=== PATIENT | female | born 1950 | race Caucasian/White ===

== ENCOUNTER 2018-01-30 17:49 | Inpatient (IN) | payer MEDICARE, MEDICAID ==
[~2018-01-30] VITALS: Ht 170.2 cm; Wt 79.8 kg
[2018-01-31 00:40] VITALS: BP 134/87
[2018-01-31] MEDS ORDERED: LORATADINE10 M2 PO (01:50)
[2018-01-31] MEDS ORDERED: LEVOTHYROXINE125 MCG ORAL (01:50)
[2018-01-31] MEDS ORDERED: CYCLOBENZAPRINE10 MG ORAL (01:50)
[2018-01-31] MEDS ORDERED: NEURONTIN600 MG ORAL (01:50)
[2018-01-31] MEDS ORDERED: QUETIAPINE FUMA50 MG ORAL (01:50)
[2018-01-31] MEDS ORDERED: GERI-TUSSI100 MG/5 M PO (01:50)
[2018-01-31] MEDS ORDERED: CYMBALTA60 MG ORAL (01:50)
[2018-01-31] MEDS ORDERED: TRAMADOL HCL50 MG ORAL (01:50)
[2018-01-31] MEDS ORDERED: LAMICTAL100 MG ORAL (01:50)
[2018-01-31] MEDS ORDERED: ACETAMINOPHEN325 M1 ORAL (01:50)
[2018-01-31] MEDS ORDERED: FLONASE1 SPRAYS NASAL (01:50)
[2018-01-31] MEDS ORDERED: MILK OF MA2400 MG/10 ORAL (01:50)
[2018-01-31] MEDS ORDERED: NORCO 5-325 TA1 EACH ORAL (01:50)
[2018-01-31] MEDS ORDERED: B-121000 MCG PO (01:50)
[2018-01-31] MEDS ORDERED: FAMOTIDINE20 MG ORAL (01:50)
[2018-01-31] MEDS ORDERED: TRAZODONE HCL300 MG ORAL (01:50)
[2018-01-31] MEDS ORDERED: Milk of Magnesia 30ml Ud ORAL PRN (02:45)
[2018-01-31] MEDS: cefTRIAXone 1 GM in D5W 55 ML IVPB SCH (03:45)
[2018-01-31 04:00] VITALS: BP 129/71
[2018-01-31] MEDS: Levothyroxine 125mcg tab ORAL SCH (05:58)
[2018-01-31 07:15] LABS: ALBUMIN 3.2 G/DL (3.4-5.0); ALBUMIN/GLOBULIN RATIO 0.9 (1.0-2.7); ALKALINE PHOSPHATASE 122 U/L (46-116); ANION GAP 6 mmol/L (5-15); ASPARTATE AMINO TRANSFERASE 17 U/L (15-37); BILIRUBIN,TOTAL 0.4 MG/DL (0.2-1.0); BLOOD UREA NITROGEN 15 mg/dL (7-18); CALCIUM 8.9 MG/DL (8.5-10.1); CARBON DIOXIDE 28 MMOL/L (21-32); CHLORIDE 104 MMOL/L (98-107); CREATININE 1.2 MG/DL (0.55-1.30); POTASSIUM 4.3 MMOL/L (3.5-5.1); SODIUM 138 MMOL/L (136-145)
[2018-01-31 07:32] LABS: ALANINE AMINOTRANSFERASE 18 U/L (12-78)
[2018-01-31 08:00] VITALS: BP 139/74
[2018-01-31 08:15] LABS: BASOPHILS % (AUTO) 0.5 % (0.0-2.0); EOSINOPHILS % (AUTO) 3.9 % (0.0-3.0); HEMOGLOBIN 12.3 G/DL (12.0-16.0); LYMPHOCYTES % (AUTO) 18.7 % (20.0-45.0); MEAN CORPUSCULAR VOLUME 96 FL (80-99); MONOCYTES % (AUTO) 4.4 % (1.0-10.0); NEUTROPHILS % (AUTO) 72.5 % (45.0-75.0); PLATELET COUNT 254 K/UL (150-450); RED BLOOD COUNT 3.85 M/UL (4.20-5.40); WHITE BLOOD COUNT 16.2 K/UL (4.8-10.8)
--- NOTE | 2018-01-31 08:49 | Diagnostic Imaging Report ---
EXAM: XR Chest, 1 View CLINICAL HISTORY: COPD TECHNIQUE: Frontal view of the chest. COMPARISON: No relevant prior studies available. FINDINGS: Lungs: Low lung volumes with elevated right hemidiaphragm. Suspected right lower lobe infiltrate. Pleural space: Unremarkable. No pneumothorax. Heart: Unremarkable. No cardiomegaly. Mediastinum: Unremarkable. Bones/joints: Unremarkable. IMPRESSION: Low lung volumes with elevated right hemidiaphragm and right lower lobe infiltrate. Recommend short-term followup.
[2018-01-31] MEDS ORDERED: Flonase Nasal Inhaler 16gm NASAL SCH (09:00)
[2018-01-31] MEDS: DULoxetine 30mg cap ORAL SCH ×2 (10:02→17:53)
[2018-01-31] MEDS: Solu-MEDROL 40mg Inj IVP SCH ×2 (10:04→22:45)
[2018-01-31] MEDS: Cyclobenzaprine 10mg Tab ORAL SCH ×2 (10:04→17:53)
[2018-01-31] MEDS: guaiFENesin 100mg/5ml Liq ud ORAL PRN (10:12)
[2018-01-31] MEDS: Flonase Nasal Inhaler 16gm NASAL SCH (10:12)
[2018-01-31 12:00] VITALS: BP 126/67
[2018-01-31] MEDS ORDERED: NS 275ml ONE (15:48)
[2018-01-31] MEDS ORDERED: Tubing IV Secondary IV ONE (15:48)
[2018-01-31 16:00] VITALS: BP 120/67
--- NOTE | 2018-01-31 16:02 | Consultation ---
Consult Note Assessment/Plan #[id number] COPDexacerbation AMS pna depression/Gregoria Osorio DO Jan 31, 2018 16:02
[2018-01-31] MEDS ORDERED: Albuterol/Ipratropium 3ml neb ONE (16:43)
[2018-01-31] MEDS ORDERED: Albuterol/Ipratropium 3ml neb HHN PRN ×2 (16:45)
[2018-01-31] MEDS: Albuterol/Ipratropium 3ml neb HHN SCH ×2 (19:51→23:39)
[2018-01-31 20:09] VITALS: BP 127/70
[2018-01-31] MEDS: TraZODone 100mg tab ORAL SCH (22:46)
[2018-01-31] MEDS: Norco 5mg/325mg tab ORAL PRN (22:59)
--- NOTE | 2018-01-31 23:01 | Consultation ---
DATE OF CONSULTATION: 01/31/2018 PULMONARY CONSULTATION CONSULTING PHYSICIAN: Gregoria Islas D.O. REASON FOR CONSULTATION: Shortness of breath. HISTORY OF PRESENT ILLNESS: This is a 67-year-old female, who is directly admitted to our facility with COPD exacerbation, possible pneumonia. Upon my entering her room, she was lethargic, aroused to noxious stimuli, fell asleep quickly. She was eating earlier and awake per the nursing staff. No reports of chest pain, nausea, vomiting, or diarrhea. PAST MEDICAL HISTORY: Includes pneumonia, gait instability, CHF, COPD, GERD, hypothyroidism, bipolar disorder, chronic low back pain. FAMILY HISTORY: Unavailable. REVIEW OF SYSTEMS: Unavailable. Pre-hospital and current hospital medications were reviewed, reconciled, and documented in the electronic medical record by dose, frequency, and route. ALLERGIES: She has no known drug allergies. CODE STATUS: She is DNR. PHYSICAL EXAMINATION: GENERAL: At the time of my exam, she is lethargic in no acute respiratory distress, on supplemental oxygen. HEENT: Oropharynx is moist. Nasal mucosa moist. LUNGS: Decreased at the bases. No wheezes. HEART: Regular rhythm without a murmur. ABDOMEN: Soft, nontender. Positive bowel sounds. EXTREMITIES: No edema. NEUROLOGIC: She does move her extremities spontaneously. LABORATORY VALUES: White count 16.2, hemoglobin 12.3, and platelets are 254,000. Sodium 138, potassium 4.3, chloride 104, bicarbonate 26, BUN 15, creatinine 1.2, and glucose is 106. Chest x-ray was obtained today, low lung volumes with elevated right hemidiaphragm and possible right lower lobe infiltrate. ASSESSMENT AND PLAN: Pneumonia, COPD with exacerbation, depression, bipolar disorder, gait dysfunction, gastroesophageal reflux disease, and hypertension. The patient was placed on IV antibiotics which should be continued. Check sputum cultures. Steroids have been initiated and would continue. We would check a baseline ABG. Follow up O2 to maintain saturations greater than 90%. DVT prophylaxis. Nebulizers will be ordered as DuoNebs q.4 hours [id number]. Home medications to resume. Follow up her laboratories and we will continue to follow the patient for the remainder of her hospital stay. Gregoria Islas D.O. DR: Jose JOB#: [id number] CC:
[2018-02-01] MEDS: Albuterol/Ipratropium 3ml neb HHN SCH ×6 (03:40→23:16)
[2018-02-01] MEDS: cefTRIAXone 1 GM in D5W 55 ML IVPB SCH (04:27)
[2018-02-01] MEDS: Levothyroxine 125mcg tab ORAL SCH (07:05)
[2018-02-01 08:00] VITALS: BP 127/73
[2018-02-01] MEDS: Solu-MEDROL 40mg Inj IVP SCH ×2 (09:07→20:37)
[2018-02-01] MEDS: Cyclobenzaprine 10mg Tab ORAL SCH ×2 (09:07→17:19)
[2018-02-01] MEDS: Flonase Nasal Inhaler 16gm NASAL SCH (09:07)
[2018-02-01] MEDS: DULoxetine 30mg cap ORAL SCH ×2 (09:08→17:19)
[2018-02-01 12:00] VITALS: BP 115/43
--- NOTE | 2018-02-01 12:28 | Consultation ---
History of Present Illness General Date patient seen: Feb 01, 2018 Present Illness Allergies: Uncoded Allergies: lactose intolerant (Adverse Reaction, Intermediate, 01/31/18) Medication History Scheduled Cyanocobalamin (Vitamin B-12) (B-12), 1,000 MCG PO DAILY, (Reported) Cyclobenzaprine Hcl* (Flexeril*), 10 MG ORAL BID, (Reported) Duloxetine Hcl* (Cymbalta*), 60 MG ORAL BID, (Reported) Famotidine (Famotidine), 20 MG ORAL DAILY, (Reported) Fluticasone Propionate (Fluticasone Propionate), 1 SPRAY NASAL DAILY, (Reported) Gabapentin* (Neurontin*), 600 MG ORAL BID, (Reported) Lamotrigine* (Lamictal*), 100 MG ORAL BID, (Reported) Levothyroxine Sodium* (Levothyroxine Sodium*), 125 MCG ORAL DAILY, (Reported) Quetiapine Fumarate* (Quetiapine Fumarate*), 25 MG ORAL BID, (Reported) Trazodone Hcl (Trazodone Hcl), 100 MG ORAL BEDTIME, (Reported) Scheduled PRN Acetaminophen* (Acetaminophen 325MG Tablet*), 650 MG ORAL Q6H PRN for Mild Pain/ Temp > 100.5, (Reported) Guaifenesin (Yelitza-Tussin), 100 MG PO EVERY 6 HOURS PRN for For Cough, (Reported) Hydrocodone Bit/Acetaminophen 5-325* ([place] 5-325*), 1 TAB ORAL Q12HR PRN for Moderate Pain (Pain Scale 4-6), (Reported) Loratadine (Loratadine), 10 MG PO DAILY PRN for Itching/Pruritis, (Reported) Magnesium Hydroxide* (Milk Of Magnesia*), 30 ML ORAL DAILY PRN for Constipation, (Reported) Tramadol Hcl* (Ultram*), 50 MG ORAL Q4HR PRN for Severe Pain (Pain Scale 7-10), (Reported) Patient History Healthcare decision maker Resuscitation status Do Not Resuscitate Advanced Directive on File No Physical Exam Last 24 Hour Vital Signs Date Time Temp Pulse Resp B/P (MAP) Pulse Ox O2 Delivery O2 Flow Rate FiO2 02/01/18 09:07 97.8 02/01/18 08:25 84 20 99 Room Air 21 02/01/18 08:18 83 20 85 Room Air 21 02/01/18 08:00 97.8 77 18 127/73 (91) 96 97.8 02/01/18 04:00 02/01/18 03:40 Room Air 02/01/18 03:40 Room Air 01/31/18 23:48 79 20 99 Room Air 01/31/18 23:38 86 20 96 Room Air 01/31/18 21:00 Room Air 01/31/18 20:09 96.5 89 20 127/70 (89) 100 96.5 01/31/18 19:58 83 20 99 Room Air 01/31/18 19:48 84 20 95 Room Air 01/31/18 18:52 98.2 01/31/18 17:53 98.2 01/31/18 17:10 66 20 97 Room Air 01/31/18 16:54 63 20 93 Room Air 01/31/18 16:53 63 20 Room Air 01/31/18 16:00 98.2 85 20 120/67 (84) 98 98.2 Intake and Output 01/31/18 02/01/18 19:00 07:00 Intake Total 680 ml 200 ml Output Total 850 ml Balance 680 ml -650 ml Intake Oral 680 ml Free Water 200 ml Output Urine Total 850 ml # Voids 4 Laboratory Tests Test 01/31/18 16:50 Arterial Blood pH 7.420 (7.350-7.450) Arterial Blood Partial Pressure CO2 38.3 mmHg (35.0-45.0) Arterial Blood Partial Pressure O2 68.2 mmHg (75.0-100.0) L Arterial Blood HCO3 24.6 mmol/L (22.0-26.0) Arterial Blood Oxygen Saturation 93.9 % (92.0-98.0) Arterial Blood Base Excess 0.4 Juan Test Positive Height (Feet): 5 Height (Inches): 7.00 Weight (Pounds): 175 Medications Current Medications Medications (Trade) Dose Ordered Sig/Rohan Route PRN Reason Start Time Stop Time Status Last Admin Dose Admin Acetaminophen (Tylenol) 650 mg Q6H PRN ORAL Mild Pain/Temp > 100.5 01/31/18 02:45 03/02/18 02:44 Acetaminophen/ Hydrocodone Bitart ([place] 5/325) 1 tab Q12H PRN ORAL Moderate Pain (Pain Scale 4-6) 01/31/18 02:45 02/07/18 02:44 01/31/18 22:59 Albuterol/ Ipratropium (Albuterol/ Ipratropium) 3 ml Q4H PRN HHN Shortness of Breath 01/31/18 16:45 02/05/18 16:44 01/31/18 16:54 Albuterol/ Ipratropium (Albuterol/ Ipratropium) 3 ml Q4HRT HHN 01/31/18 19:00 02/05/18 18:59 02/01/18 08:18 Ceftriaxone Sodium 1 gm/ Dextrose 55 ml @ 110 mls/hr Q24H IVPB 01/31/18 03:00 02/07/18 02:59 02/01/18 04:27 Cyclobenzaprine HCl (Flexeril) 10 mg BID ORAL 01/31/18 09:00 03/02/18 08:59 02/01/18 09:07 Duloxetine HCl (Cymbalta) 60 mg BID ORAL 01/31/18 09:00 03/02/18 08:59 02/01/18 09:08 Famotidine (Pepcid) 20 mg DAILY ORAL 01/31/18 09:00 03/02/18 08:59 02/01/18 09:08 Fluticasone Propionate (Flonase) 1 spray DAILY NASAL 01/31/18 09:00 03/02/18 08:59 02/01/18 09:07 Guaifenesin (Robitussin) 100 mg Q6H PRN ORAL For Cough 01/31/18 02:45 03/02/18 02:44 01/31/18 10:12 Lamotrigine (LaMICtal) 100 mg BID ORAL 01/31/18 09:00 03/02/18 08:59 02/01/18 09:07 Levothyroxine Sodium (Synthroid) 125 mcg DAILY@0630 ORAL 01/31/18 06:30 03/02/18 06:29 02/01/18 07:05 Magnesium Hydroxide (Mom) 30 ml DAILY PRN ORAL Constipation 01/31/18 02:45 03/02/18 02:44 Methylprednisolone Sodium Succinate (Solu-MEDROL) 40 mg EVERY 12 HOURS IVP 01/31/18 09:00 03/02/18 08:59 7/15/18 09:07 Pregabalin (Lyrica) 75 mg THREE TIMES A DAY ORAL 02/01/18 13:00 03/03/18 12:59 UNV Quetiapine Fumarate (SEROquel) 25 mg BID ORAL 01/31/18 09:00 03/02/18 08:59 02/01/18 09:07 Tramadol HCl (Ultram) 50 mg Q4H PRN ORAL Severe Pain (Pain Scale 7-10) 01/31/18 02:45 02/07/18 02:44 Trazodone HCl (Desyrel) 100 mg BEDTIME ORAL 01/31/18 21:00 03/02/18 20:59 01/31/18 22:46 Assessment/Plan Assessment/Plan (1) Cervical sprain (2) Cervical Radiculopathy (3) Cervical spondylosis (4) Postherpetic neuralgia seen dictated Larry Celis Feb 01, 2018 12:28
--- NOTE | 2018-02-01 12:55 | Infectious Diseases Prog Note ---
Assessment/Plan Assessment/Plan Id consult dictated Subjective Allergies: Uncoded Allergies: lactose intolerant (Adverse Reaction, Intermediate, 01/31/18) Objective Vital Signs Last 24 Hour Vital Signs Date Time Temp Pulse Resp B/P (MAP) Pulse Ox O2 Delivery O2 Flow Rate FiO2 02/01/18 12:00 98.6 96 16 115/43 (67) 93 98.6 02/01/18 09:07 97.8 02/01/18 08:25 84 20 99 Room Air 21 02/01/18 08:18 83 20 85 Room Air 21 02/01/18 08:00 97.8 77 18 127/73 (91) 96 97.8 02/01/18 04:00 02/01/18 03:40 Room Air 02/01/18 03:40 Room Air 01/31/18 23:48 79 20 99 Room Air 01/31/18 23:38 86 20 96 Room Air 01/31/18 21:00 Room Air 01/31/18 20:09 96.5 89 20 127/70 (89) 100 96.5 01/31/18 19:58 83 20 99 Room Air 01/31/18 19:48 84 20 95 Room Air 01/31/18 18:52 98.2 01/31/18 17:53 98.2 01/31/18 17:10 66 20 97 Room Air 01/31/18 16:54 63 20 93 Room Air 01/31/18 16:53 63 20 Room Air 01/31/18 16:00 98.2 85 20 120/67 (84) 98 98.2 Height (Feet): 5 Height (Inches): 7.00 Weight (Pounds): 175 Microbiology Date/Time Source Procedure Growth Status 01/31/18 01:20 Rectal Mucosa Received Laboratory Tests Test 01/31/18 16:50 Arterial Blood pH 7.420 (7.350-7.450) Arterial Blood Partial Pressure CO2 38.3 mmHg (35.0-45.0) Arterial Blood Partial Pressure O2 68.2 mmHg (75.0-100.0) L Arterial Blood HCO3 24.6 mmol/L (22.0-26.0) Arterial Blood Oxygen Saturation 93.9 % (92.0-98.0) Arterial Blood Base Excess 0.4 Juan Test Positive Current Medications Medications (Trade) Dose Ordered Sig/Rohan Route PRN Reason Start Time Stop Time Status Last Admin Dose Admin Acetaminophen (Tylenol) 650 mg Q6H PRN ORAL Mild Pain/Temp > 100.5 01/31/18 02:45 03/02/18 02:44 Acetaminophen/ Hydrocodone Bitart ([place] 5/325) 1 tab Q12H PRN ORAL Moderate Pain (Pain Scale 4-6) 01/31/18 02:45 02/07/18 02:44 01/31/18 22:59 Albuterol/ Ipratropium (Albuterol/ Ipratropium) 3 ml Q4H PRN HHN Shortness of Breath 01/31/18 16:45 02/05/18 16:44 01/31/18 16:54 Albuterol/ Ipratropium (Albuterol/ Ipratropium) 3 ml Q4HRT HHN 01/31/18 19:00 02/05/18 18:59 02/01/18 08:18 Ceftriaxone Sodium 1 gm/ Dextrose 55 ml @ 110 mls/hr Q24H IVPB 01/31/18 03:00 02/07/18 02:59 02/01/18 04:27 Cyclobenzaprine HCl (Flexeril) 10 mg BID ORAL 01/31/18 09:00 03/02/18 08:59 02/01/18 09:07 Duloxetine HCl (Cymbalta) 60 mg BID ORAL 01/31/18 09:00 03/02/18 08:59 02/01/18 09:08 Famotidine (Pepcid) 20 mg DAILY ORAL 01/31/18 09:00 03/02/18 08:59 02/01/18 09:08 Fluticasone Propionate (Flonase) 1 spray DAILY NASAL 01/31/18 09:00 03/02/18 08:59 02/01/18 09:07 Guaifenesin (Robitussin) 100 mg Q6H PRN ORAL For Cough 01/31/18 02:45 03/02/18 02:44 01/31/18 10:12 Lamotrigine (LaMICtal) 100 mg BID ORAL 01/31/18 09:00 03/02/18 08:59 02/01/18 09:07 Levothyroxine Sodium (Synthroid) 125 mcg DAILY@0630 ORAL 01/31/18 06:30 03/02/18 06:29 02/01/18 07:05 Magnesium Hydroxide (Mom) 30 ml DAILY PRN ORAL Constipation 01/31/18 02:45 03/02/18 02:44 Methylprednisolone Sodium Succinate (Solu-MEDROL) 40 mg EVERY 12 HOURS IVP 01/31/18 09:00 03/02/18 08:59 02/01/18 09:07 Pregabalin (Lyrica) 75 mg THREE TIMES A DAY ORAL 02/01/18 13:00 03/03/18 12:59 Quetiapine Fumarate (SEROquel) 25 mg BID ORAL 01/31/18 09:00 03/02/18 08:59 02/01/18 09:07 Tramadol HCl (Ultram) 50 mg Q4H PRN ORAL Severe Pain (Pain Scale 7-10) 01/31/18 02:45 02/07/18 02:44 Trazodone HCl (Desyrel) 100 mg BEDTIME ORAL 01/31/18 21:00 03/02/18 20:59 01/31/18 22:46 Asim Baldwin MD Feb 01, 2018 12:55
[2018-02-01] MEDS: guaiFENesin 100mg/5ml Liq ud ORAL PRN ×2 (13:34→20:43)
[2018-02-01] MEDS: Lyrica 75mg cap ORAL SCH ×2 (13:35→17:19)
[2018-02-01] MEDS ORDERED: Azithromycin 250mg tab ORAL SCH (14:00)
--- NOTE | 2018-02-01 14:33 | Pulmonology Progress Note ---
Assessment/Plan Assessment/Plan Pneumonia COPD with exacerbation depression, bipolar disorder gait dysfunction gastroesophageal reflux disease hypertension. nebs steroids adn taper in am check ra sats pain control iv abx dc planning Subjective Constitutional: Reports: no symptoms Respiratory: Reports: no symptoms Cardiovascular: Reports: chest pain Gastrointestinal/Abdominal: Reports: no symptoms Genitourinary: Reports: no symptoms Neurologic: Reports: no symptoms Allergies: Uncoded Allergies: lactose intolerant (Adverse Reaction, Intermediate, 01/31/18) Subjective better on ra no distress nebs helpful still wtih back pain Objective Last 24 Hour Vital Signs Date Time Temp Pulse Resp B/P (MAP) Pulse Ox O2 Delivery O2 Flow Rate FiO2 02/01/18 13:35 98.6 02/01/18 13:10 78 20 98 Room Air 21 02/01/18 13:01 96 20 96 Room Air 21 02/01/18 12:00 98.6 96 16 115/43 (67) 93 98.6 02/01/18 10:05 98.6 02/01/18 09:07 97.8 02/01/18 08:25 84 20 99 Room Air 21 02/01/18 08:18 83 20 85 Room Air 21 02/01/18 08:00 97.8 77 18 127/73 (91) 96 97.8 02/01/18 04:00 02/01/18 03:40 Room Air 02/01/18 03:40 Room Air 01/31/18 23:48 79 20 99 Room Air 01/31/18 23:38 86 20 96 Room Air 01/31/18 21:00 Room Air 01/31/18 20:09 96.5 89 20 127/70 (89) 100 96.5 01/31/18 19:58 83 20 99 Room Air 01/31/18 19:48 84 20 95 Room Air 01/31/18 17:53 98.2 01/31/18 17:10 66 20 97 Room Air 01/31/18 16:54 63 20 93 Room Air 01/31/18 16:53 63 20 Room Air 01/31/18 16:00 98.2 85 20 120/67 (84) 98 98.2 Intake and Output 01/31/18 02/01/18 19:00 07:00 Intake Total 680 ml 200 ml Output Total 850 ml Balance 680 ml -650 ml Intake Oral 680 ml Free Water 200 ml Output Urine Total 850 ml # Voids 4 General Appearance: WD/WN Respiratory/Chest: lungs clear, normal breath sounds Cardiovascular: normal rate, regular rhythm Abdomen: soft, non tender, non distended Skin: no lesions Neurologic/Psychiatric: hosiery bagger II-XII grossly normal, oriented x 3 Microbiology Date/Time Source Procedure Growth Status 01/31/18 01:20 Rectal Mucosa Received Laboratory Tests 01/31/18 16:50: Arterial Blood pH 7.420, Arterial Blood Partial Pressure CO2 38.3, Arterial Blood Partial Pressure O2 68.2L, Arterial Blood HCO3 24.6, Arterial Blood Oxygen Saturation 93.9, Arterial Blood Base Excess 0.4, Juan Test Positive Current Medications Medications (Trade) Dose Ordered Sig/Rohan Route PRN Reason Start Time Stop Time Status Last Admin Dose Admin Acetaminophen (Tylenol) 650 mg Q6H PRN ORAL Mild Pain/Temp > 100.5 01/31/18 02:45 03/02/18 02:44 Acetaminophen/ Hydrocodone Bitart ([place] 5/325) 1 tab Q12H PRN ORAL Moderate Pain (Pain Scale 4-6) 01/31/18 02:45 02/07/18 02:44 01/31/18 22:59 Albuterol/ Ipratropium (Albuterol/ Ipratropium) 3 ml Q4H PRN HHN Shortness of Breath 01/31/18 16:45 02/05/18 16:44 01/31/18 16:54 Albuterol/ Ipratropium (Albuterol/ Ipratropium) 3 ml Q4HRT HHN 01/31/18 19:00 02/05/18 18:59 02/01/18 13:01 Azithromycin (Zithromax) 250 mg DAILY ORAL 02/02/18 09:00 02/09/18 08:59 Azithromycin (Zithromax) 500 mg ONCE ORAL 02/01/18 14:00 02/01/18 15:00 02/01/18 13:36 Ceftriaxone Sodium 1 gm/ Dextrose 55 ml @ 110 mls/hr Q24H IVPB 02/02/18 09:00 02/09/18 08:59 Cyclobenzaprine HCl (Flexeril) 10 mg BID ORAL 01/31/18 09:00 03/02/18 08:59 02/01/18 09:07 Duloxetine HCl (Cymbalta) 60 mg BID ORAL 01/31/18 09:00 03/02/18 08:59 02/01/18 09:08 Famotidine (Pepcid) 20 mg DAILY ORAL 01/31/18 09:00 03/02/18 08:59 02/01/18 09:08 Fluticasone Propionate (Flonase) 1 spray DAILY NASAL 01/31/18 09:00 03/02/18 08:59 02/01/18 09:07 Guaifenesin (Robitussin) 100 mg Q6H PRN ORAL For Cough 01/31/18 02:45 03/02/18 02:44 02/01/18 13:34 Lamotrigine (LaMICtal) 100 mg BID ORAL 01/31/18 09:00 03/02/18 08:59 02/01/18 09:07 Levothyroxine Sodium (Synthroid) 125 mcg DAILY@0630 ORAL 01/31/18 06:30 03/02/18 06:29 02/01/18 07:05 Magnesium Hydroxide (Mom) 30 ml DAILY PRN ORAL Constipation 01/31/18 02:45 03/02/18 02:44 Methylprednisolone Sodium Succinate (Solu-MEDROL) 40 mg EVERY 12 HOURS IVP 01/31/18 09:00 03/02/18 08:59 02/01/18 09:07 Pregabalin (Lyrica) 75 mg THREE TIMES A DAY ORAL 02/01/18 13:00 03/03/18 12:59 02/01/18 13:35 Quetiapine Fumarate (SEROquel) 25 mg BID ORAL 01/31/18 09:00 03/02/18 08:59 02/01/18 09:07 Tramadol HCl (Ultram) 50 mg Q4H PRN ORAL Severe Pain (Pain Scale 7-10) 01/31/18 02:45 02/07/18 02:44 Trazodone HCl (Desyrel) 100 mg BEDTIME ORAL 01/31/18 21:00 03/02/18 20:59 01/31/18 22:46 Gregoria Islas DO Feb 01, 2018 14:33
[2018-02-01 16:00] VITALS: BP 146/79
--- NOTE | 2018-02-01 19:15 | Consultation ---
DATE OF CONSULTATION: 02/01/2018 PAIN MANAGEMENT CONSULTATION CONSULTING PHYSICIAN: Leonides Lyon M.D. REFERRING PHYSICIAN: Veto Alfonso M.D. PHYSICIAN CAN STRIPER: Ailyn Hernández CHIEF COMPLAINT: Neck pain and left upper back pain. HISTORY OF PRESENT ILLNESS: This is a 67-year-old female, who is being seen on the Medical/Surgical floor of [facility] for initial comprehensive pain management consultation. The patient was admitted under the care of Dr. Alfonso due to COPD exacerbation, reporting that she has been having neck pain and left shoulder pain due to recent fall and the pain she has had to her left wrist, more so with movement. She is on [place] 5/325 mg one tablet every 4 hours as needed for moderate pain and tramadol 50 mg tablet every 4 hours as needed for mild pain. We were consulted to help the patient to have adequate pain control while here in the hospital. The patient has not had MRI of the cervical spine. He is on Neurontin with minimal relief. Discussed with her changing the Neurontin to Lyrica. She seems to understand and agrees, and she has no other complaints. PAST MEDICAL HISTORY: Pneumonia, CHF, COPD, GERD, hypothyroidism, and bipolar disorder. PAST SURGICAL HISTORY: Left ankle open reduction and internal fixation. SOCIAL HISTORY: Has a history of smoking tobacco. Denies alcohol. No drug abuse. ALLERGIES: Lactulose. MEDICATIONS: Vitamin B12, Flexeril, Cymbalta, famotidine, fluconazole, Neurontin, Lamictal, levothyroxine, quetiapine, trazodone, Tylenol, [place], loratadine, milk of magnesia, and Ultram. REVIEW OF SYSTEMS: Denies rash, fever, chills, sweating, dizziness, drowsiness, blurred vision, sore throat, or change in weight. No shortness of breath or chest pain. No nausea, vomiting, diarrhea, or blood in the stool or urine. No bowel or bladder incontinence. No dysuria. She is complaining of neck pain. PHYSICAL EXAMINATION: GENERAL: Alert, awake, and oriented. VITAL SIGNS: Blood pressure 137/73, heart rate is 77, oxygen saturation 96%, respirations 18, and temperature is 97.8 degrees Fahrenheit. HEENT: PERRLA. NECK: Range of motion is decreased due to the patient's pain and condition. No tenderness to paracervical muscles. No adenopathy. LUNGS: Decreased breath sounds bilaterally. HEART: S1 and S2 regular. ABDOMEN: Benign. BACK: Range of motion is decreased in flexion and extension. EXTREMITIES: Upper extremity range of motion is decreased due to the patient's condition. No cyanosis. No clubbing. No edema. Sensory is intact. Reflexes are not obtainable. No adenopathy. Lower extremity range of motion is decreased due to the patient condition. No cyanosis. No clubbing. No edema. Sensory is intact. Reflexes are unobtainable. No adenopathy. ASSESSMENT AND PLAN: This is a 67-year-old female with cervical sprain, cervical radiculopathy, cervical spondylosis, postherpetic neuralgia. The patient will be discontinued off the Neurontin, started on Lyrica 75 mg 3 times a day. We will continue the patient on the Burkett and tramadol. An MRI of the cervical spine without contrast will be ordered to rule out further pathology in the cervical spine. The patient was discussed with Dr. Lyon and Dr. Lyon concurred. We will follow the patient. Thank you very much for the courtesy of this consultation. Leonides Lyon M.D. DEBBIE Hernández DR: JAZ JOB#: [id number] CC:
[2018-02-01 20:00] VITALS: BP 109/61
[2018-02-01] MEDS: TraZODone 100mg tab ORAL SCH (20:36)
--- NOTE | 2018-02-01 22:30 | Progress Note ---
SUBJECTIVE: This is a 67 years old female. Currently, short of breath is improving. She still has some cough. No fever. No chills. PAST MEDICAL HISTORY: Significant for COPD, chronic back pain, degenerative arthritis, and depressed. OBJECTIVE: GENERAL: She is currently doing better. VITAL SIGNS: Blood pressure is 130/70, pulse 74, and respirations 18. SKIN: Good skin turgor. HEENT: NAD. CHEST: Bilateral crackles. CARDIOVASCULAR: Regular rhythm. No gallop. No murmur. ABDOMEN: Soft. EXTREMITIES: CCE. NEUROLOGIC: The patient has generalized weakness, status post BKA. ASSESSMENT: 1. Acute chronic obstructive pulmonary disease. 2. Chronic pain. 3. Depression. 4. Anxiety. PLAN: 1. Continue IV steroids and bronchodilator treatment. 2. Continue supportive treatment. Veto Alfonso M.D. DR: Elio JOB#: [id number] CC:
--- NOTE | 2018-02-01 23:30 | Consultation ---
DATE OF CONSULTATION: 02/01/2018 INFECTIOUS DISEASE CONSULTATION This consult is for coverage of Dr. Field. PRIMARY ATTENDING: Veto Alfonso M.D. REASON FOR CONSULTATION: Pneumonia and COPD exacerbation. HISTORY OF PRESENT ILLNESS: A 67-year-old white female admitted yesterday from [facility] with shortness of breath and coughing. The patient states that she coughs for a couple of weeks. She is an active smoker. PAST MEDICAL HISTORY: Significant for COPD, depression, psychosis, hypertension, gastroesophageal reflux disease, and hypothyroidism. PAST SURGICAL HISTORY: History of cholecystectomy and history of hysterectomy. MEDICATIONS: Getting pregabalin, trazodone, albuterol and ipratropium inhaler, methylprednisone, Flexeril, Cymbalta, famotidine, lamotrigine, Seroquel, fluticasone nasal, levothyroxine, ceftriaxone, Tylenol, guaifenesin, [place], milk of magnesia, and tramadol. ALLERGIES: The patient is lactose intolerant. SOCIAL HISTORY: Smoking half a pack cigarettes a day. No drug abuse. She has three children. Before hospitalization to snf, lived alone. REVIEW OF SYSTEMS: No fever. No chills. No nausea. No vomiting. Has dry coughing. No chest pain. No problem passing urine. PHYSICAL EXAMINATION: VITAL SIGNS: Temperature 97.8 degrees, pulse 84, and blood pressure 127/73. In the hospital, has a temperature up to 101 degrees yesterday. GENERAL APPEARANCE: No acute distress. HEAD AND NECK: She has poor dentition and few teeth remained. HEART: Regular. LUNGS: Clear. ABDOMEN: Soft and nontender. EXTREMITIES: She has no edema. LABORATORY AND DIAGNOSTIC DATA: Sodium 138, potassium 4.3, chloride 104, bicarbonate 28, BUN 15 and creatinine 1.2. Blood gas showed decrease in pO2, which was 68.2. WBC 16.2, hemoglobin 13.3, hematocrit 37, and platelets 254,000. Chest x-ray showed lung volume loss, elevation of right hemidiaphragm, and right lower lobe infiltrate. IMPRESSION: 1. Pneumonia of right lung. 2. Chronic obstructive pulmonary disease exacerbation. 3. Active smoker. 4. Hypothyroidism. 5. Depression. 6. Psychosis. 7. Hypertension. RECOMMENDATION: We will continue with ceftriaxone. We will add Zithromax. The patient does not want to quit smoking at this time. At the end of my exam, I thank Dr. Alfonso for involving me in the care of this patient. Asim Baldwin M.D. DR: Henrik JOB#: [id number] CC: TAMELA
[2018-02-02] VITALS: BP 105/56
[2018-02-02] MEDS: Albuterol/Ipratropium 3ml neb HHN SCH ×6 (03:00→23:00)
[2018-02-02 04:28] VITALS: BP 107/52
[2018-02-02] MEDS: Levothyroxine 125mcg tab ORAL SCH (05:42)
[2018-02-02] MEDS: traMADol 50mg tab ORAL PRN (05:42)
[2018-02-02 08:00] VITALS: BP 122/68
--- NOTE | 2018-02-02 08:11 | General Progress Note ---
Assessment/Plan Assessment/Plan (1) Cervical sprain (2) Cervical Radiculopathy (3) Cervical spondylosis (4) Postherpetic neuralgia Patient will be continued on the Lyrica, [place] and Tramadol. MRI pending results. D/w Dr. Lyon and he concurred. Subjective Date patient seen: Feb 02, 2018 Time patient seen: 06:30 - am Allergies: Uncoded Allergies: lactose intolerant (Adverse Reaction, Intermediate, 01/31/18) Subjective REVIEW OF SYSTEMS: Denies rash, fever, chills, sweating, dizziness, drowsiness, blurred vision, sore throat, or change in weight. No shortness of breath or chest pain. No nausea, vomiting, diarrhea, or blood in the stool or urine. No bowel or bladder incontinence. No dysuria. She is complaining of neck pain. SUBJECTIVE: Patient is in bed and reports that her pain has been stable on the [place] and Tramadol and is waiting to have the MRI. Has started the Lyrica but has not felt a change yet. Objective Last 24 Hour Vital Signs Date Time Temp Pulse Resp B/P (MAP) Pulse Ox O2 Delivery O2 Flow Rate FiO2 02/02/18 08:01 84 19 96 Room Air 02/02/18 04:28 97.6 79 18 107/52 (70) 96 97.6 02/02/18 03:19 Room Air 02/02/18 03:19 Room Air 02/02/18 00:00 98.2 89 18 105/56 (72) 96 98.2 02/01/18 23:26 91 20 98 Room Air 02/01/18 23:16 90 20 94 Room Air 02/01/18 21:00 Room Air 02/01/18 20:00 98.4 90 20 109/61 (77) 94 98.4 02/01/18 19:47 85 20 98 Room Air 02/01/18 19:37 88 20 95 Room Air 02/01/18 18:18 97.8 02/01/18 18:18 97.8 02/01/18 18:01 82 20 99 Room Air 21 02/01/18 17:22 95 20 96 Room Air 21 02/01/18 17:19 97.8 02/01/18 17:19 97.8 02/01/18 16:00 97.8 80 19 146/79 (101) 98 97.8 02/01/18 13:35 98.6 02/01/18 13:10 78 20 98 Room Air 21 02/01/18 13:01 96 20 96 Room Air 21 02/01/18 12:00 98.6 96 16 115/43 (67) 93 98.6 02/01/18 09:07 97.8 02/01/18 09:00 Room Air 02/01/18 08:25 84 20 99 Room Air 21 02/01/18 08:18 83 20 85 Room Air 21 Intake and Output 02/01/18 02/02/18 19:00 07:00 Intake Total 500 ml 250 ml Balance 500 ml 250 ml Intake Oral 500 ml 250 ml # Voids 2 Height (Feet): 5 Height (Inches): 7.00 Weight (Pounds): 175 Objective GENERAL: Alert, awake, and oriented. LUNGS: Decreased breath sounds bilaterally. HEART: S1 and S2 regular. ABDOMEN: Benign. EXTREMITIES: No cyanosis. No clubbing. No edema. NEURO: No changes. Larry Celis Feb 02, 2018 08:11
[2018-02-02] MEDS: DULoxetine 30mg cap ORAL SCH ×2 (08:29→17:19)
[2018-02-02] MEDS: cefTRIAXone 1 GM in D5W 55 ML IVPB SCH (08:30)
[2018-02-02] MEDS: Azithromycin 250mg tab ORAL SCH (08:30)
[2018-02-02] MEDS: Cyclobenzaprine 10mg Tab ORAL SCH ×2 (08:31→17:21)
[2018-02-02] MEDS: Lyrica 75mg cap ORAL SCH ×3 (08:31→17:20)
[2018-02-02] MEDS: Solu-MEDROL 40mg Inj IVP SCH ×2 (08:32→20:46)
[2018-02-02] MEDS: Flonase Nasal Inhaler 16gm NASAL SCH (08:35)
[2018-02-02 12:00] VITALS: BP 118/58
--- NOTE | 2018-02-02 12:48 | Pulmonology Progress Note ---
Assessment/Plan Assessment/Plan Pneumonia COPD with exacerbation depression bipolar disorder gait dysfunction gastroesophageal reflux disease hypertension nebs steroids iv abx labs, CXR Subjective Respiratory: Reports: productive cough; Denies: shortness of breath Allergies: Uncoded Allergies: lactose intolerant (Adverse Reaction, Intermediate, 01/31/18) Objective Last 24 Hour Vital Signs Date Time Temp Pulse Resp B/P (MAP) Pulse Ox O2 Delivery O2 Flow Rate FiO2 02/02/18 11:48 Room Air 02/02/18 11:47 Room Air 02/02/18 08:31 97.6 02/02/18 08:31 97.6 02/02/18 08:11 83 20 99 Room Air 21 02/02/18 08:01 84 19 96 Room Air 02/02/18 04:28 97.6 79 18 107/52 (70) 96 97.6 02/02/18 03:19 Room Air 02/02/18 03:19 Room Air 02/02/18 00:00 98.2 89 18 105/56 (72) 96 98.2 02/01/18 23:26 91 20 98 Room Air 21 02/01/18 23:16 90 20 94 Room Air 02/01/18 21:00 Room Air 02/01/18 20:00 98.4 90 20 109/61 (77) 94 98.4 02/01/18 19:47 85 20 98 Room Air 21 02/01/18 19:37 88 20 95 Room Air 02/01/18 18:18 97.8 02/01/18 18:18 97.8 02/01/18 18:01 82 20 99 Room Air 21 02/01/18 17:22 95 20 96 Room Air 21 02/01/18 17:19 97.8 02/01/18 17:19 97.8 02/01/18 16:00 97.8 80 19 146/79 (101) 98 97.8 02/01/18 13:35 98.6 02/01/18 13:10 78 20 98 Room Air 21 02/01/18 13:01 96 20 96 Room Air 21 Intake and Output 02/01/18 02/02/18 19:00 07:00 Intake Total 500 ml 250 ml Balance 500 ml 250 ml Intake Oral 500 ml 250 ml # Voids 2 General Appearance: no acute distress HEENT: atraumatic Respiratory/Chest: decreased breath sounds Cardiovascular: normal rate Microbiology Date/Time Source Procedure Growth Status 01/31/18 01:40 Nasal Nares Left MRSA Culture - Final Staphylococcus Aureus - Mrsa Complete 01/31/18 01:20 Rectal Mucosa VRE Culture - Final NO VANCOMYCIN RESISTANT ENTEROCOCCUS ... Complete 01/31/18 01:00 Rectum - Final NO CARBAPENEM-RESISTANT ENTEROBACTERI... Complete Current Medications Medications (Trade) Dose Ordered Sig/Rohan Route PRN Reason Start Time Stop Time Status Last Admin Dose Admin Acetaminophen (Tylenol) 650 mg Q6H PRN ORAL Mild Pain/Temp > 100.5 01/31/18 02:45 03/02/18 02:44 Acetaminophen/ Hydrocodone Bitart ([place] 5/325) 1 tab Q12H PRN ORAL Moderate Pain (Pain Scale 4-6) 01/31/18 02:45 02/07/18 02:44 01/31/18 22:59 Albuterol/ Ipratropium (Albuterol/ Ipratropium) 3 ml Q4H PRN HHN Shortness of Breath 01/31/18 16:45 02/05/18 16:44 01/31/18 16:54 Albuterol/ Ipratropium (Albuterol/ Ipratropium) 3 ml Q4HRT HHN 01/31/18 19:00 02/05/18 18:59 02/02/18 08:01 Azithromycin (Zithromax) 250 mg DAILY ORAL 02/02/18 09:00 02/09/18 08:59 02/02/18 08:30 Ceftriaxone Sodium 1 gm/ Dextrose 55 ml @ 110 mls/hr Q24H IVPB 02/02/18 09:00 02/09/18 08:59 02/02/18 08:30 Cyclobenzaprine HCl (Flexeril) 10 mg BID ORAL 01/31/18 09:00 03/02/18 08:59 02/02/18 08:31 Duloxetine HCl (Cymbalta) 60 mg BID ORAL 01/31/18 09:00 03/02/18 08:59 02/02/18 08:29 Famotidine (Pepcid) 20 mg DAILY ORAL 01/31/18 09:00 03/02/18 08:59 02/02/18 08:29 Fluticasone Propionate (Flonase) 1 spray DAILY NASAL 01/31/18 09:00 03/02/18 08:59 02/02/18 08:35 Guaifenesin (Robitussin) 100 mg Q6H PRN ORAL For Cough 01/31/18 02:45 03/02/18 02:44 02/01/18 20:43 Lamotrigine (LaMICtal) 100 mg BID ORAL 01/31/18 09:00 03/02/18 08:59 02/02/18 08:31 Levothyroxine Sodium (Synthroid) 125 mcg DAILY@0630 ORAL 01/31/18 06:30 03/02/18 06:29 02/02/18 05:42 Magnesium Hydroxide (Mom) 30 ml DAILY PRN ORAL Constipation 01/31/18 02:45 03/02/18 02:44 Methylprednisolone Sodium Succinate (Solu-MEDROL) 40 mg EVERY 12 HOURS IVP 01/31/18 09:00 03/02/18 08:59 02/02/18 08:32 Pregabalin (Lyrica) 75 mg THREE TIMES A DAY ORAL 02/01/18 13:00 03/03/18 12:59 02/02/18 08:31 Quetiapine Fumarate (SEROquel) 25 mg BID ORAL 01/31/18 09:00 03/02/18 08:59 02/01/18 17:18 Tramadol HCl (Ultram) 50 mg Q4H PRN ORAL Severe Pain (Pain Scale 7-10) 01/31/18 02:45 02/07/18 02:44 02/02/18 05:42 Trazodone HCl (Desyrel) 100 mg BEDTIME ORAL 01/31/18 21:00 03/02/18 20:59 02/01/18 20:36 Yahir Morton MD Feb 02, 2018 12:48
[2018-02-02] MEDS: guaiFENesin 100mg/5ml Liq ud ORAL PRN ×2 (13:03→20:49)
[2018-02-02 16:00] VITALS: BP 109/63
--- NOTE | 2018-02-02 16:14 | Diagnostic Imaging Report ---
Indication: Recent fall, neck pain and shoulder radiculopathy Technique: Sagittal T1 FLAIR PROPELLER, sagittal T2 PROPELLOR, sagittal STIR, axial T2 PROPELLER, axial 3D COSMIC ASPIR images were obtained through the cervical spine Comparison: none Findings: Bony alignment is normal. Vertebral body heights are preserved. Vertebral body marrow signal is normal. Intrinsic cord signal is normal. At C5-6, there is moderate degenerative disc narrowing. There is circumferential annular bulge and posterior osteophyte complex which results in moderate narrowing of the spinal canal centrally, narrowed to minimum 8 mm AP dimension. There is also an asymmetric right lateral component which may impinge somewhat on the right lateral recess. There is mild bilateral neural foraminal narrowing. At C6-7, there is mild degenerative disc narrowing. There is circumferential annular bulge which results in mild narrowing of the spinal canal at this level. There is mild bilateral neural foraminal stenosis at this level. At C7-T1, no significant disc bulge or protrusion. There is mild neural foraminal narrowing bilaterally. At C4-5, there is degenerative disc narrowing. There are minimal posterior osteophytes to the right of midline which may impinge slightly on the right lateral recess. There is mild left and moderate right neural foraminal stenosis. At C3-4, there is mild to moderate left, mild right neural foraminal narrowing. At the remaining disc levels, no significant disc bulge or protrusion or spinal neural foraminal stenosis. The included extra spinal soft tissues are unremarkable. Note the presence of some susceptibility artifact from a neck less that could not be removed. Impression: No acute bony trauma Spinal stenosis, worst at C5-6. Other degenerative changes and neural foraminal stenoses as detailed on a level by level basis above.
--- NOTE | 2018-02-02 17:00 | History and Physical Report ---
HISTORY OF PRESENT ILLNESS: This is an elderly female, who came to the emergency room for having short of breath and cough with sputum production in the last few days. The patient also had a fever this morning 101, not feeling well, generalized weakness, tired, and fatigue. PAST MEDICAL HISTORY: Significant for COPD, CHF, hypertension, severe arthritis, and peripheral vascular disease. MEDICATIONS: See the list. ALLERGIES: NKA. FAMILY HISTORY: Noncontributory. SOCIAL HISTORY: Lives at [facility]. The patient mostly wheelchair bound. REVIEW OF SYSTEMS: Not feeling well, generalized weakness, tired, fatigue, and cough with sputum production. PHYSICAL EXAMINATION: GENERAL: This is an elderly female. VITAL SIGNS: Blood pressure 115/70, pulse 100, respirations 18 to 24, and temperature of 101. HEENT: Eyes are open. NECK: Supple. CHEST: Bilaterally scattered wheezing and crackles. CARDIOVASCULAR: Regular rhythm. No gallop. No murmur. ABDOMEN: Soft. Positive bowel sounds. Nontender. EXTREMITIES: No swelling. GENITOURINARY: Has been deferred. LABORATORY DATA: White counts are slightly high. ASSESSMENT: 1. Fever, rule out sepsis. 2. Acute chronic obstructive pulmonary disease. 3. Degenerative arthritis. 4. Hypertension. 5. Anxiety. 6. Chronic pain. PLAN: 1. We will admit her on the medical floor. 2. Start IV steroid and bronchodilator treatment. 3. Continue p.o. feeding. 4. Consider Pulmonary and ID on case. Veto Alfonso M.D. DR: BRENDAN JOB#: [id number] CC:
[2018-02-02 20:00] VITALS: BP 114/58
[2018-02-02] MEDS: TraZODone 100mg tab ORAL SCH (20:46)
[2018-02-02] MEDS: Norco 5mg/325mg tab ORAL PRN (20:50)
[2018-02-03] VITALS: BP 126/66
[2018-02-03] MEDS: traMADol 50mg tab ORAL PRN ×3 (01:45→20:21)
--- NOTE | 2018-02-03 02:30 | Progress Note ---
DATE: 02/02/2018 SUBJECTIVE: This is an elderly female, who is still coughing and feeling generalized weakness. OBJECTIVE: VITAL SIGNS: Blood pressure 118/58, pulse 74, and no fever. CHEST: Bilaterally scattered wheezing and crackles. CARDIOVASCULAR: Regular rhythm. No gallop. No murmur. ABDOMEN: Soft. EXTREMITIES: CCE. NEUROLOGICAL: Generalized weakness. LABORATORY DATA: White count 16,000 yesterday. ASSESSMENT: 1. Acute COPD. 2. Chronic pain. 3. Depression. 4. BKA. PLAN: 1. We will currently continue the patient on IV steroids, bronchodilator treatments, antibiotics, added Lyrica. 2. Continue Cymbalta. 3. Continue Flexeril. Veto Alfonso M.D. DR: KAZ JOB#: [id number] CC:
[2018-02-03] MEDS: Albuterol/Ipratropium 3ml neb HHN SCH ×6 (02:55→23:00)
[2018-02-03 04:00] VITALS: BP 125/73
[2018-02-03] MEDS: Levothyroxine 125mcg tab ORAL SCH (05:49)
[2018-02-03 07:23] LABS: HEMATOCRIT 37.6 % (37.0-47.0); HEMOGLOBIN 12.5 G/DL (12.0-16.0); MEAN CORPUSCULAR VOLUME 96 FL (80-99); PLATELET COUNT 256 K/UL (150-450); RED BLOOD COUNT 3.91 M/UL (4.20-5.40); RED CELL DISTRIBUTION WIDTH 12.3 % (11.6-14.8); WHITE BLOOD COUNT 14.8 K/UL (4.8-10.8)
[2018-02-03 07:28] LABS: ALANINE AMINOTRANSFERASE 20 U/L (12-78); ALBUMIN 3.2 G/DL (3.4-5.0); ALBUMIN/GLOBULIN RATIO 0.8 (1.0-2.7); ALKALINE PHOSPHATASE 102 U/L (46-116); ANION GAP 7 mmol/L (5-15); ASPARTATE AMINO TRANSFERASE 10 U/L (15-37); BILIRUBIN,TOTAL 0.3 MG/DL (0.2-1.0); BLOOD UREA NITROGEN 32 mg/dL (7-18); CARBON DIOXIDE 29 MMOL/L (21-32); CHLORIDE 104 MMOL/L (98-107); CREATININE 1.2 MG/DL (0.55-1.30); SODIUM 140 MMOL/L (136-145)
[2018-02-03 08:00] VITALS: BP 153/75
--- NOTE | 2018-02-03 08:35 | General Progress Note ---
Assessment/Plan Assessment/Plan (1) Cervical sprain (2) Cervical Radiculopathy (3) Cervical spondylosis (4) Cervical spinal stenosis (5) Postherpetic neuralgia Patient will be continued on the Lyrica, [place] and Tramadol. Recommend patient to consult with neurosurgeon as out pt. D/w Dr. Lyon and he concurred. Subjective Date patient seen: Feb 03, 2018 Time patient seen: 07:30 - am Allergies: Uncoded Allergies: lactose intolerant (Adverse Reaction, Intermediate, 01/31/18) Subjective REVIEW OF SYSTEMS: Denies rash, fever, chills, sweating, dizziness, drowsiness, blurred vision, sore throat, or change in weight. No shortness of breath or chest pain. No nausea, vomiting, diarrhea, or blood in the stool or urine. No bowel or bladder incontinence. No dysuria. She is complaining of neck pain. SUBJECTIVE: Patient is in bed and reports the pain has been getting better with the Lyrica and using the norco with tramadol as needed. MRI of Cervical spine was reviewed with patient advised patient to consult with a neurosurgeon as an out pt for injections or possible surgery. Patient understands. Objective Last 24 Hour Vital Signs Date Time Temp Pulse Resp B/P (MAP) Pulse Ox O2 Delivery O2 Flow Rate FiO2 02/03/18 07:31 Room Air 21 02/03/18 07:31 Room Air 21 02/03/18 04:00 97.9 69 17 125/73 (90) 95 97.9 02/03/18 02:55 Room Air 21 02/03/18 02:55 Room Air 21 02/03/18 02:44 97.2 02/03/18 01:45 97.2 02/03/18 00:00 97.2 73 18 126/66 (86) 96 97.2 02/02/18 23:11 Room Air 21 02/02/18 23:11 Room Air 21 02/02/18 21:51 97.6 02/02/18 21:38 Room Air 02/02/18 20:50 97.6 02/02/18 20:00 98.8 85 17 114/58 (76) 96 98.8 02/02/18 19:21 71 22 98 Room Air 21 02/02/18 19:15 77 22 96 Room Air 02/02/18 18:19 97.6 02/02/18 18:19 97.6 02/02/18 17:21 97.6 02/02/18 17:20 97.6 02/02/18 16:40 74 20 95 Room Air 21 02/02/18 16:30 74 20 95 Room Air 02/02/18 16:00 98.2 78 19 109/63 (78) 98 98.2 02/02/18 13:03 97.6 02/02/18 12:00 97.8 72 18 118/58 (78) 98 97.8 02/02/18 11:48 Room Air 02/02/18 11:47 Room Air 02/02/18 09:00 Room Air Intake and Output 02/02/18 02/03/18 19:00 07:00 Intake Total 500 ml 360 ml Balance 500 ml 360 ml Intake Oral 500 ml 360 ml # Voids 2 # Bowel Movements 1 Laboratory Tests 02/03/18 05:25: White Blood Count 14.8H, Red Blood Count 3.91L, Hemoglobin 12.5, Hematocrit 37.6 , Mean Corpuscular Volume 96, Mean Corpuscular Hemoglobin 32.0H, Mean Corpuscular Hemoglobin Concent 33.3, Red Cell Distribution Width 12.3, Platelet Count 256, Mean Platelet Volume 7.7, Neutrophils (%) (Auto) , Lymphocytes (%) ( Auto) , Monocytes (%) (Auto) , Eosinophils (%) (Auto) , Basophils (%) (Auto) , Neutrophils % (Manual) [Pending], Lymphocytes % (Manual) [Pending], Platelet Estimate [Pending], Platelet Morphology [Pending], Sodium Level 140, Potassium Level 5.0, Chloride Level 104, Carbon Dioxide Level 29, Anion Gap 7, Blood Urea Nitrogen 32H, Creatinine 1.2, Estimat Glomerular Filtration Rate 44.5, Glucose Level 142H, Calcium Level 9.0, Total Bilirubin 0.3, Aspartate Amino Transf (AST/ SGOT) 10L, Alanine Aminotransferase (ALT/SGPT) 20, Alkaline Phosphatase 102, Total Protein 7.0, Albumin 3.2L, Globulin 3.8, Albumin/Globulin Ratio 0.8L, Thyroid Stimulating Hormone (TSH) 0.454 Height (Feet): 5 Height (Inches): 7.00 Weight (Pounds): 175 Objective GENERAL: Alert, awake, and oriented. LUNGS: Decreased breath sounds bilaterally. HEART: S1 and S2 regular. ABDOMEN: Benign. EXTREMITIES: No cyanosis. No clubbing. No edema. NEURO: No changes. Procedure: MRI C Spine no Contrast Indication: Recent fall, neck pain and shoulder radiculopathy Technique: Sagittal T1 FLAIR PROPELLER, sagittal T2 PROPELLOR, sagittal STIR, axial T2 PROPELLER, axial 3D COSMIC ASPIR images were obtained through the cervical spine Comparison: none Findings: Bony alignment is normal. Vertebral body heights are preserved. Vertebral body marrow signal is normal. Intrinsic cord signal is normal. At C5-6, there is moderate degenerative disc narrowing. There is circumferential annular bulge and posterior osteophyte complex which results in moderate narrowing of the spinal canal centrally, narrowed to minimum 8 mm AP dimension. There is also an asymmetric right lateral component which may impinge somewhat on the right lateral recess. There is mild bilateral neural foraminal narrowing. At C6-7, there is mild degenerative disc narrowing. There is circumferential annular bulge which results in mild narrowing of the spinal canal at this level. There is mild bilateral neural foraminal stenosis at this level. At C7-T1, no significant disc bulge or protrusion. There is mild neural foraminal narrowing bilaterally. At C4-5, there is degenerative disc narrowing. There are minimal posterior osteophytes to the right of midline which may impinge slightly on the right lateral recess. There is mild left and moderate right neural foraminal stenosis. At C3-4, there is mild to moderate left, mild right neural foraminal narrowing. At the remaining disc levels, no significant disc bulge or protrusion or spinal neural foraminal stenosis. The included extra spinal soft tissues are unremarkable. Note the presence of some susceptibility artifact from a neck less that could not be removed. Impression: No acute bony trauma Spinal stenosis, worst at C5-6. Other degenerative changes and neural foraminal stenoses as detailed on a level by level basis above. Larry Celis Feb 03, 2018 08:35
[2018-02-03] MEDS: Cyclobenzaprine 10mg Tab ORAL SCH ×2 (08:58→17:37)
[2018-02-03] MEDS: Solu-MEDROL 40mg Inj IVP SCH ×2 (08:58→20:20)
[2018-02-03] MEDS: DULoxetine 30mg cap ORAL SCH ×2 (08:59→17:37)
[2018-02-03] MEDS: Azithromycin 250mg tab ORAL SCH (08:59)
[2018-02-03] MEDS: Lyrica 75mg cap ORAL SCH ×3 (08:59→17:37)
[2018-02-03] MEDS: Flonase Nasal Inhaler 16gm NASAL SCH (09:00)
[2018-02-03] MEDS: cefTRIAXone 1 GM in D5W 55 ML IVPB SCH (09:01)
--- NOTE | 2018-02-03 11:03 | Diagnostic Imaging Report ---
Indication: Dyspnea Comparison: 01/31/2018 A single view chest radiograph was obtained. Findings: Cardiomediastinal appearance is within normal limits for age. Pulmonary vascularity is appropriate. The diaphragmatic contour is smooth and costophrenic angles are sharp. No pleural effusions are identified. The bones are unremarkable. Impression: No acute findings
--- NOTE | 2018-02-03 11:03 | Infectious Diseases Prog Note ---
Assessment/Plan Assessment/Plan antibiotics : ceftriaxone, azithromycin A 1. pneumonia 2. COPD exacerbation 3. hypertension 4. leucocytosis improving P 1. continue ceftriaxone, azithromycin 2. sputum culture 3. will follow up cultures Subjective Constitutional: Denies: fever, chills Respiratory: Reports: shortness of breath, dry cough - decreasing Gastrointestinal/Abdominal: Denies: nausea, vomiting, diarrhea Musculoskeletal: Reports: pain Allergies: Uncoded Allergies: lactose intolerant (Adverse Reaction, Intermediate, 01/31/18) Objective Vital Signs Last 24 Hour Vital Signs Date Time Temp Pulse Resp B/P (MAP) Pulse Ox O2 Delivery O2 Flow Rate FiO2 02/03/18 09:58 97.9 02/03/18 09:57 97.9 02/03/18 08:59 97.9 02/03/18 08:58 97.9 02/03/18 08:45 Room Air 02/03/18 08:00 98.1 73 20 153/75 (101) 97 98.1 02/03/18 07:31 Room Air 21 02/03/18 07:31 Room Air 21 02/03/18 04:00 97.9 69 17 125/73 (90) 95 97.9 02/03/18 02:55 Room Air 21 02/03/18 02:55 Room Air 21 02/03/18 02:44 97.2 02/03/18 01:45 97.2 02/03/18 00:00 97.2 73 18 126/66 (86) 96 97.2 02/02/18 23:11 Room Air 21 02/02/18 23:11 Room Air 21 02/02/18 21:51 97.6 02/02/18 21:38 Room Air 02/02/18 20:50 97.6 02/02/18 20:00 98.8 85 17 114/58 (76) 96 98.8 02/02/18 19:21 71 22 98 Room Air 21 02/02/18 19:15 77 22 96 Room Air 02/02/18 17:21 97.6 02/02/18 17:20 97.6 02/02/18 16:40 74 20 95 Room Air 21 02/02/18 16:30 74 20 95 Room Air 02/02/18 16:00 98.2 78 19 109/63 (78) 98 98.2 02/02/18 13:03 97.6 02/02/18 12:00 97.8 72 18 118/58 (78) 98 97.8 02/02/18 11:48 Room Air 02/02/18 11:47 Room Air Height (Feet): 5 Height (Inches): 7.00 Weight (Pounds): 175 Respiratory/Chest: lungs clear Cardiovascular: normal rate, regular rhythm, no gallop/murmur Abdomen: soft, non tender Extremities: no edema Laboratory Tests Test 02/03/18 05:25 White Blood Count 14.8 K/UL (4.8-10.8) H Red Blood Count 3.91 M/UL (4.20-5.40) L Hemoglobin 12.5 G/DL (12.0-16.0) Hematocrit 37.6 % (37.0-47.0) Mean Corpuscular Volume 96 FL (80-99) Mean Corpuscular Hemoglobin 32.0 PG (27.0-31.0) H Mean Corpuscular Hemoglobin Concent 33.3 G/DL (32.0-36.0) Red Cell Distribution Width 12.3 % (11.6-14.8) Platelet Count 256 K/UL (150-450) Mean Platelet Volume 7.7 FL (6.5-10.1) Neutrophils (%) (Auto) % (45.0-75.0) Lymphocytes (%) (Auto) % (20.0-45.0) Monocytes (%) (Auto) % (1.0-10.0) Eosinophils (%) (Auto) % (0.0-3.0) Basophils (%) (Auto) % (0.0-2.0) Differential Total Cells Counted 100 Neutrophils % (Manual) 88 % (45-75) H Lymphocytes % (Manual) 8 % (20-45) L Monocytes % (Manual) 1 % (1-10) Eosinophils % (Manual) 0 % (0-3) Basophils % (Manual) 0 % (0-2) Band Neutrophils 3 % (0-8) Platelet Estimate Adequate Platelet Morphology Normal Red Blood Cell Morphology Normal Sodium Level 140 MMOL/L (136-145) Potassium Level 5.0 MMOL/L (3.5-5.1) Chloride Level 104 MMOL/L (98-107) Carbon Dioxide Level 29 MMOL/L (21-32) Anion Gap 7 mmol/L (5-15) Blood Urea Nitrogen 32 mg/dL (7-18) H Creatinine 1.2 MG/DL (0.55-1.30) Estimat Glomerular Filtration Rate 44.5 mL/min (>60) Glucose Level 142 MG/DL (74-106) H Calcium Level 9.0 MG/DL (8.5-10.1) Total Bilirubin 0.3 MG/DL (0.2-1.0) Aspartate Amino Transf (AST/SGOT) 10 U/L (15-37) L Alanine Aminotransferase (ALT/SGPT) 20 U/L (12-78) Alkaline Phosphatase 102 U/L (46-116) Total Protein 7.0 G/DL (6.4-8.2) Albumin 3.2 G/DL (3.4-5.0) L Globulin 3.8 g/dL Albumin/Globulin Ratio 0.8 (1.0-2.7) L Thyroid Stimulating Hormone (TSH) 0.454 uiU/mL (0.358-3.740) Current Medications Medications (Trade) Dose Ordered Sig/Rohan Route PRN Reason Start Time Stop Time Status Last Admin Dose Admin Acetaminophen (Tylenol) 650 mg Q6H PRN ORAL Mild Pain/Temp > 100.5 01/31/18 02:45 03/02/18 02:44 Acetaminophen/ Hydrocodone Bitart ([place] 5/325) 1 tab Q12H PRN ORAL Moderate Pain (Pain Scale 4-6) 01/31/18 02:45 02/07/18 02:44 02/02/18 20:50 Albuterol/ Ipratropium (Albuterol/ Ipratropium) 3 ml Q4H PRN HHN Shortness of Breath 01/31/18 16:45 02/05/18 16:44 01/31/18 16:54 Albuterol/ Ipratropium (Albuterol/ Ipratropium) 3 ml Q4HRT HHN 01/31/18 19:00 02/05/18 18:59 02/02/18 19:20 Azithromycin (Zithromax) 250 mg DAILY ORAL 02/02/18 09:00 02/09/18 08:59 02/03/18 08:59 Ceftriaxone Sodium 1 gm/ Dextrose 55 ml @ 110 mls/hr Q24H IVPB 02/02/18 09:00 02/09/18 08:59 02/03/18 09:01 Cyclobenzaprine HCl (Flexeril) 10 mg BID ORAL 01/31/18 09:00 03/02/18 08:59 02/03/18 08:58 Duloxetine HCl (Cymbalta) 60 mg BID ORAL 01/31/18 09:00 03/02/18 08:59 02/03/18 08:59 Famotidine (Pepcid) 20 mg DAILY ORAL 01/31/18 09:00 03/02/18 08:59 02/03/18 08:59 Fluticasone Propionate (Flonase) 1 spray DAILY NASAL 01/31/18 09:00 03/02/18 08:59 02/02/18 08:35 Guaifenesin (Robitussin) 100 mg Q6H PRN ORAL For Cough 01/31/18 02:45 03/02/18 02:44 02/02/18 20:49 Lamotrigine (LaMICtal) 100 mg BID ORAL 01/31/18 09:00 03/02/18 08:59 02/03/18 08:59 Levothyroxine Sodium (Synthroid) 125 mcg DAILY@0630 ORAL 01/31/18 06:30 03/02/18 06:29 02/03/18 05:49 Magnesium Hydroxide (Mom) 30 ml DAILY PRN ORAL Constipation 01/31/18 02:45 03/02/18 02:44 Methylprednisolone Sodium Succinate (Solu-MEDROL) 20 mg EVERY 12 HOURS IVP 02/02/18 21:00 03/02/18 08:59 02/03/18 08:58 Pregabalin (Lyrica) 75 mg THREE TIMES A DAY ORAL 02/01/18 13:00 03/03/18 12:59 02/03/18 08:59 Quetiapine Fumarate (SEROquel) 25 mg BID ORAL 01/31/18 09:00 03/02/18 08:59 02/03/18 08:58 Tramadol HCl (Ultram) 50 mg Q4H PRN ORAL Severe Pain (Pain Scale 7-10) 01/31/18 02:45 02/07/18 02:44 02/03/18 01:45 Trazodone HCl (Desyrel) 100 mg BEDTIME ORAL 01/31/18 21:00 03/02/18 20:59 02/02/18 20:46 YAMINI RODRIGUEZ Feb 03, 2018 11:03
[2018-02-03 12:00] VITALS: BP 131/89
[2018-02-03] MEDS: guaiFENesin 100mg/5ml Liq ud ORAL PRN ×2 (12:07→22:37)
[2018-02-03] MEDS: Norco 5mg/325mg tab ORAL PRN (12:07)
--- NOTE | 2018-02-03 15:43 | Pulmonology Progress Note ---
Assessment/Plan Assessment/Plan Pneumonia (CXR clear now) COPD with exacerbation depression bipolar disorder gait dysfunction gastroesophageal reflux disease hypertension nebs steroids iv abx labs reviewed cont rx dc planning Subjective Respiratory: Reports: productive cough, sputum Allergies: Uncoded Allergies: lactose intolerant (Adverse Reaction, Intermediate, 01/31/18) Objective Last 24 Hour Vital Signs Date Time Temp Pulse Resp B/P (MAP) Pulse Ox O2 Delivery O2 Flow Rate FiO2 02/03/18 15:24 97.9 02/03/18 13:06 97.9 02/03/18 13:06 97.9 02/03/18 12:09 75 18 98 Room Air 21 02/03/18 12:07 97.9 02/03/18 12:07 97.9 02/03/18 12:00 81 16 95 Room Air 02/03/18 12:00 98.2 72 20 131/89 (103) 95 98.2 02/03/18 09:57 97.9 02/03/18 08:59 97.9 02/03/18 08:58 97.9 02/03/18 08:45 Room Air 02/03/18 08:00 98.1 73 20 153/75 (101) 97 98.1 02/03/18 07:31 Room Air 21 02/03/18 07:31 Room Air 21 02/03/18 04:00 97.9 69 17 125/73 (90) 95 97.9 02/03/18 02:55 Room Air 21 02/03/18 02:55 Room Air 21 02/03/18 02:44 97.2 02/03/18 01:45 97.2 02/03/18 00:00 97.2 73 18 126/66 (86) 96 97.2 02/02/18 23:11 Room Air 21 02/02/18 23:11 Room Air 21 02/02/18 21:38 Room Air 02/02/18 20:50 97.6 02/02/18 20:00 98.8 85 17 114/58 (76) 96 98.8 02/02/18 19:21 71 22 98 Room Air 21 02/02/18 19:15 77 22 96 Room Air 02/02/18 17:21 97.6 02/02/18 17:20 97.6 02/02/18 16:40 74 20 95 Room Air 21 02/02/18 16:30 74 20 95 Room Air 02/02/18 16:00 98.2 78 19 109/63 (78) 98 98.2 Intake and Output 02/02/18 02/03/18 19:00 07:00 Intake Total 500 ml 360 ml Balance 500 ml 360 ml Intake Oral 500 ml 360 ml # Voids 2 # Bowel Movements 1 General Appearance: no acute distress HEENT: atraumatic Respiratory/Chest: lungs clear Cardiovascular: normal rate Laboratory Tests 02/03/18 05:25: White Blood Count 14.8H, Red Blood Count 3.91L, Hemoglobin 12.5, Hematocrit 37.6 , Mean Corpuscular Volume 96, Mean Corpuscular Hemoglobin 32.0H, Mean Corpuscular Hemoglobin Concent 33.3, Red Cell Distribution Width 12.3, Platelet Count 256, Mean Platelet Volume 7.7, Neutrophils (%) (Auto) , Lymphocytes (%) ( Auto) , Monocytes (%) (Auto) , Eosinophils (%) (Auto) , Basophils (%) (Auto) , Differential Total Cells Counted 100, Neutrophils % (Manual) 88H, Lymphocytes % (Manual) 8L, Monocytes % (Manual) 1, Eosinophils % (Manual) 0, Basophils % ( Manual) 0, Band Neutrophils 3, Platelet Estimate Adequate, Platelet Morphology Normal, Red Blood Cell Morphology Normal, Sodium Level 140, Potassium Level 5.0 , Chloride Level 104, Carbon Dioxide Level 29, Anion Gap 7, Blood Urea Nitrogen 32H, Creatinine 1.2, Estimat Glomerular Filtration Rate 44.5, Glucose Level 142H , Calcium Level 9.0, Total Bilirubin 0.3, Aspartate Amino Transf (AST/SGOT) 10L , Alanine Aminotransferase (ALT/SGPT) 20, Alkaline Phosphatase 102, Total Protein 7.0, Albumin 3.2L, Globulin 3.8, Albumin/Globulin Ratio 0.8L, Thyroid Stimulating Hormone (TSH) 0.454 Current Medications Medications (Trade) Dose Ordered Sig/Rohan Route PRN Reason Start Time Stop Time Status Last Admin Dose Admin Acetaminophen (Tylenol) 650 mg Q6H PRN ORAL Mild Pain/Temp > 100.5 01/31/18 02:45 03/02/18 02:44 Acetaminophen/ Hydrocodone Bitart ([place] 5/325) 1 tab Q12H PRN ORAL Moderate Pain (Pain Scale 4-6) 01/31/18 02:45 02/07/18 02:44 02/03/18 12:07 Albuterol/ Ipratropium (Albuterol/ Ipratropium) 3 ml Q4H PRN HHN Shortness of Breath 01/31/18 16:45 02/05/18 16:44 01/31/18 16:54 Albuterol/ Ipratropium (Albuterol/ Ipratropium) 3 ml Q4HRT HHN 01/31/18 19:00 02/05/18 18:59 02/03/18 12:08 Azithromycin (Zithromax) 250 mg DAILY ORAL 02/02/18 09:00 02/09/18 08:59 02/03/18 08:59 Ceftriaxone Sodium 1 gm/ Dextrose 55 ml @ 110 mls/hr Q24H IVPB 02/02/18 09:00 02/09/18 08:59 02/03/18 09:01 Cyclobenzaprine HCl (Flexeril) 10 mg BID ORAL 01/31/18 09:00 03/02/18 08:59 02/03/18 08:58 Duloxetine HCl (Cymbalta) 60 mg BID ORAL 01/31/18 09:00 03/02/18 08:59 02/03/18 08:59 Famotidine (Pepcid) 20 mg DAILY ORAL 01/31/18 09:00 03/02/18 08:59 02/03/18 08:59 Fluticasone Propionate (Flonase) 1 spray DAILY NASAL 01/31/18 09:00 03/02/18 08:59 02/02/18 08:35 Guaifenesin (Robitussin) 100 mg Q6H PRN ORAL For Cough 01/31/18 02:45 03/02/18 02:44 02/03/18 12:07 Lamotrigine (LaMICtal) 100 mg BID ORAL 01/31/18 09:00 03/02/18 08:59 02/03/18 08:59 Levothyroxine Sodium (Synthroid) 125 mcg DAILY@0630 ORAL 01/31/18 06:30 03/02/18 06:29 02/03/18 05:49 Magnesium Hydroxide (Mom) 30 ml DAILY PRN ORAL Constipation 01/31/18 02:45 03/02/18 02:44 Methylprednisolone Sodium Succinate (Solu-MEDROL) 20 mg EVERY 12 HOURS IVP 02/02/18 21:00 03/02/18 08:59 02/03/18 08:58 Pregabalin (Lyrica) 75 mg THREE TIMES A DAY ORAL 02/01/18 13:00 03/03/18 12:59 02/03/18 12:07 Quetiapine Fumarate (SEROquel) 25 mg BID ORAL 01/31/18 09:00 03/02/18 08:59 02/03/18 08:58 Tramadol HCl (Ultram) 50 mg Q4H PRN ORAL Severe Pain (Pain Scale 7-10) 01/31/18 02:45 02/07/18 02:44 02/03/18 15:24 Trazodone HCl (Desyrel) 100 mg BEDTIME ORAL 01/31/18 21:00 03/02/18 20:59 02/02/18 20:46 Yahir Morton MD Feb 03, 2018 15:43
[2018-02-03 16:00] VITALS: BP 121/56
[2018-02-03 20:12] VITALS: BP 98/70
[2018-02-03] MEDS: TraZODone 100mg tab ORAL SCH (20:21)
[2018-02-04] MEDS: Norco 5mg/325mg tab ORAL PRN (01:27)
[2018-02-04] MEDS: Albuterol/Ipratropium 3ml neb HHN SCH ×3 (02:55→11:00)
--- NOTE | 2018-02-04 03:30 | Progress Note ---
DATE: 02/03/2018 NOTE: POOR AUDIO SUBJECTIVE: This is an elderly female, currently doing better. She still has some congestion, but is improving. OBJECTIVE: VITAL SIGNS: Her blood pressure is 130/70, pulse 60, respirations 18, no fever. CHEST: Bilateral scattered wheezing. CARDIOVASCULAR: Regular rhythm. No gallop. No murmur. ABDOMEN: Soft. Positive bowel sounds. ASSESSMENT: 1. Acute COPD. 2. Congestive heart failure. 3. Depression. 4. Anxiety. PLAN: We will recommend to continue Solu-Medrol . Continue bronchodilator treatments. Continue pain medication. Veto Alfonso M.D. DR: KAZ JOB#: [id number] CC:
[2018-02-04 04:09] VITALS: BP 116/68
[2018-02-04] MEDS: Levothyroxine 125mcg tab ORAL SCH (05:54)
[2018-02-04] MEDS: guaiFENesin 100mg/5ml Liq ud ORAL PRN (05:55)
[2018-02-04] MEDS: traMADol 50mg tab ORAL PRN (05:55)
[2018-02-04 08:00] VITALS: BP 121/49
--- NOTE | 2018-02-04 08:30 | General Progress Note ---
Assessment/Plan Assessment/Plan (1) Cervical sprain (2) Cervical Radiculopathy (3) Cervical spondylosis (4) Cervical spinal stenosis (5) Postherpetic neuralgia Patient will be continued on the Lyrica, [place] and Tramadol. Recommend patient to consult with neurosurgeon as out pt. D/w Dr. Lyon and he concurred. Subjective Date patient seen: Feb 04, 2018 Time patient seen: 07:15 - am Allergies: Uncoded Allergies: lactose intolerant (Adverse Reaction, Intermediate, 01/31/18) Subjective REVIEW OF SYSTEMS: Denies rash, fever, chills, sweating, dizziness, drowsiness, blurred vision, sore throat, or change in weight. No shortness of breath or chest pain. No nausea, vomiting, diarrhea, or blood in the stool or urine. No bowel or bladder incontinence. No dysuria. She is complaining of neck pain. SUBJECTIVE: Patient has been having minimal pain looking forward to being transferred to SNF. She has no new complaints. Objective Last 24 Hour Vital Signs Date Time Temp Pulse Resp B/P (MAP) Pulse Ox O2 Delivery O2 Flow Rate FiO2 02/04/18 06:54 98.2 02/04/18 06:35 Room Air 21 02/04/18 06:35 Room Air 21 02/04/18 05:55 98.2 02/04/18 04:09 98.2 78 16 116/68 (84) 95 98.2 02/04/18 02:55 75 18 97 Room Air 21 02/04/18 02:55 75 18 97 Room Air 21 02/04/18 02:26 97.7 02/04/18 01:27 97.7 02/03/18 23:31 Room Air 21 02/03/18 23:31 Room Air 21 02/03/18 21:00 Room Air 02/03/18 20:21 97.7 02/03/18 20:12 97.7 84 18 98/70 (79) 99 97.7 02/03/18 19:15 71 16 99 Room Air 21 02/03/18 19:09 73 16 Room Air 02/03/18 19:08 73 16 95 Room Air 02/03/18 18:36 98.6 02/03/18 18:36 98.6 02/03/18 17:37 98.6 02/03/18 17:37 98.6 02/03/18 16:35 79 18 98 Room Air 21 02/03/18 16:20 83 16 95 Room Air 02/03/18 16:00 98.6 72 20 121/56 (77) 95 98.6 02/03/18 15:24 97.9 02/03/18 12:09 75 18 98 Room Air 21 02/03/18 12:07 97.9 02/03/18 12:07 97.9 02/03/18 12:00 81 16 95 Room Air 02/03/18 12:00 98.2 72 20 131/89 (103) 95 98.2 02/03/18 08:59 97.9 02/03/18 08:58 97.9 02/03/18 08:45 Room Air Intake and Output 02/03/18 02/04/18 19:00 07:00 Intake Total 775 ml 400 ml Balance 775 ml 400 ml Intake Oral 720 ml 400 ml IV Total 55 ml # Voids 4 3 Height (Feet): 5 Height (Inches): 7.00 Weight (Pounds): 176 Objective GENERAL: Alert, awake, and oriented. LUNGS: Decreased breath sounds bilaterally. HEART: S1 and S2 regular. ABDOMEN: Benign. EXTREMITIES: No cyanosis. No clubbing. No edema. NEURO: No changes. Procedure: MRI C Spine no Contrast Indication: Recent fall, neck pain and shoulder radiculopathy Technique: Sagittal T1 FLAIR PROPELLER, sagittal T2 PROPELLOR, sagittal STIR, axial T2 PROPELLER, axial 3D COSMIC ASPIR images were obtained through the cervical spine Comparison: none Findings: Bony alignment is normal. Vertebral body heights are preserved. Vertebral body marrow signal is normal. Intrinsic cord signal is normal. At C5-6, there is moderate degenerative disc narrowing. There is circumferential annular bulge and posterior osteophyte complex which results in moderate narrowing of the spinal canal centrally, narrowed to minimum 8 mm AP dimension. There is also an asymmetric right lateral component which may impinge somewhat on the right lateral recess. There is mild bilateral neural foraminal narrowing. At C6-7, there is mild degenerative disc narrowing. There is circumferential annular bulge which results in mild narrowing of the spinal canal at this level. There is mild bilateral neural foraminal stenosis at this level. At C7-T1, no significant disc bulge or protrusion. There is mild neural foraminal narrowing bilaterally. At C4-5, there is degenerative disc narrowing. There are minimal posterior osteophytes to the right of midline which may impinge slightly on the right lateral recess. There is mild left and moderate right neural foraminal stenosis. At C3-4, there is mild to moderate left, mild right neural foraminal narrowing. At the remaining disc levels, no significant disc bulge or protrusion or spinal neural foraminal stenosis. The included extra spinal soft tissues are unremarkable. Note the presence of some susceptibility artifact from a neck less that could not be removed. Impression: No acute bony trauma Spinal stenosis, worst at C5-6. Other degenerative changes and neural foraminal stenoses as detailed on a level by level basis above. Larry Celis Feb 04, 2018 08:30
[2018-02-04] MEDS: Lyrica 75mg cap ORAL SCH ×2 (08:37→13:00)
[2018-02-04] MEDS: Cyclobenzaprine 10mg Tab ORAL SCH (08:38)
[2018-02-04] MEDS: DULoxetine 30mg cap ORAL SCH (08:38)
[2018-02-04] MEDS: Azithromycin 250mg tab ORAL SCH (08:38)
[2018-02-04] MEDS: cefTRIAXone 1 GM in D5W 55 ML IVPB SCH (08:39)
[2018-02-04] MEDS: Solu-MEDROL 40mg Inj IVP SCH (08:39)
[2018-02-04] MEDS: Flonase Nasal Inhaler 16gm NASAL SCH (08:39)
[2018-02-04] MEDS ORDERED: DUONEB 0.5-3(2.53 ML HHN (10:47)
[2018-02-04] MEDS ORDERED: LYRICA75 M1 ORAL (10:47)
[2018-02-04] MEDS ORDERED: ZITHROMAX250 MG ORAL (10:48)
[2018-02-04] MEDS ORDERED: PREDNISONE10 M2 PO (10:48)
[2018-02-04] MEDS ORDERED: PREDNISONE10 MG ORAL (10:49)
--- NOTE | 2018-02-04 11:52 | Consultation ---
History of Present Illness General Date patient seen: Feb 04, 2018 Present Illness HPI 67-year-old female, with hx of bipolar d/o who was admitted for COPD exacerbation, possible pneumonia. The pt is anxious and stated that she has not been given her meds. the pt is slightly labile.the pt has poor insight. Allergies: Uncoded Allergies: lactose intolerant (Adverse Reaction, Intermediate, 01/31/18) Medication History Scheduled Azithromycin* (Zithromax*), 250 MG ORAL DAILY, (Reported) Cyanocobalamin (Vitamin B-12) (B-12), 1,000 MCG PO DAILY, (Reported) Cyclobenzaprine Hcl* (Flexeril*), 10 MG ORAL BID, (Reported) Duloxetine Hcl* (Cymbalta*), 60 MG ORAL BID, (Reported) Famotidine (Famotidine), 20 MG ORAL DAILY, (Reported) Fluticasone Propionate (Fluticasone Propionate), 1 SPRAY NASAL DAILY, (Reported) Gabapentin* (Neurontin*), 600 MG ORAL BID, (Reported) Lamotrigine* (Lamictal*), 100 MG ORAL BID, (Reported) Levothyroxine Sodium* (Levothyroxine Sodium*), 125 MCG ORAL DAILY, (Reported) Prednisone (Prednisone), 10 MG PO DAILY, (Reported) Prednisone* (Prednisone*), 10 MG ORAL DAILY, (Reported) Pregabalin* (Lyrica*), 75 MG ORAL THREE TIMES A DAY, (Reported) Quetiapine Fumarate* (Quetiapine Fumarate*), 25 MG ORAL BID, (Reported) Trazodone Hcl (Trazodone Hcl), 100 MG ORAL BEDTIME, (Reported) Scheduled PRN Acetaminophen* (Acetaminophen 325MG Tablet*), 650 MG ORAL Q6H PRN for Mild Pain/ Temp > 100.5, (Reported) Guaifenesin (Yelitza-Tussin), 100 MG PO EVERY 6 HOURS PRN for For Cough, (Reported) Hydrocodone Bit/Acetaminophen 5-325* ([place] 5-325*), 1 TAB ORAL Q12HR PRN for Moderate Pain (Pain Scale 4-6), (Reported) Ipratropium/Albuterol Sulfate (DuoNeb 0.5-3(2.5)mg/3ml), 3 ML HHN Q4HR PRN for For Cough, (Reported) Loratadine (Loratadine), 10 MG PO DAILY PRN for Itching/Pruritis, (Reported) Magnesium Hydroxide* (Milk Of Magnesia*), 30 ML ORAL DAILY PRN for Constipation, (Reported) Tramadol Hcl* (Ultram*), 50 MG ORAL Q4HR PRN for Severe Pain (Pain Scale 7-10), (Reported) Patient History Limited by: medical condition History Provided By: Patient, Medical Record, PMD Healthcare decision maker Resuscitation status Do Not Resuscitate Advanced Directive on File No Past Medical/Surgical History Past Medical/Surgical History: (1) COPD exacerbation (2) Congestion of respiratory tract (3) Infection (4) Pain Review of Systems Psychiatric: Reports: anxiety, depressed feelings, emotional problems Physical Exam General Appearance: no apparent distress, alert Neurologic: oriented x 3 Last 24 Hour Vital Signs Date Time Temp Pulse Resp B/P (MAP) Pulse Ox O2 Delivery O2 Flow Rate FiO2 02/04/18 09:37 98.2 02/04/18 09:36 98.2 02/04/18 08:38 98.2 02/04/18 08:37 98.2 02/04/18 08:00 Room Air 02/04/18 08:00 97.7 76 18 121/49 (73) 95 97.7 02/04/18 06:54 98.2 02/04/18 06:35 Room Air 21 02/04/18 06:35 Room Air 02/04/18 05:55 98.2 02/04/18 04:09 98.2 78 16 116/68 (84) 95 98.2 02/04/18 02:55 75 18 97 Room Air 21 02/04/18 02:55 75 18 97 Room Air 21 02/04/18 02:26 97.7 02/04/18 01:27 97.7 02/03/18 23:31 Room Air 21 02/03/18 23:31 Room Air 21 02/03/18 21:00 Room Air 02/03/18 20:21 97.7 02/03/18 20:12 97.7 84 18 98/70 (79) 99 97.7 02/03/18 19:15 71 16 99 Room Air 21 02/03/18 19:09 73 16 Room Air 02/03/18 19:08 73 16 95 Room Air 02/03/18 17:37 98.6 02/03/18 17:37 98.6 02/03/18 16:35 79 18 98 Room Air 21 02/03/18 16:20 83 16 95 Room Air 02/03/18 16:00 98.6 72 20 121/56 (77) 95 98.6 02/03/18 15:24 97.9 02/03/18 12:09 75 18 98 Room Air 21 02/03/18 12:07 97.9 02/03/18 12:07 97.9 02/03/18 12:00 81 16 95 Room Air 02/03/18 12:00 98.2 72 20 131/89 (103) 95 98.2 Intake and Output 02/03/18 02/04/18 18:59 06:59 Intake Total 775 ml 400 ml Balance 775 ml 400 ml Intake Oral 720 ml 400 ml IV Total 55 ml # Voids 4 3 Microbiology Date/Time Source Procedure Growth Status 02/03/18 14:30 Sputum Gram Stain Pending Resulted 02/03/18 14:30 Sputum Sputum Culture - Preliminary NO GROWTH Resulted Height (Feet): 5 Height (Inches): 7.00 Weight (Pounds): 176 Medications Current Medications Medications (Trade) Dose Ordered Sig/Rohan Route PRN Reason Start Time Stop Time Status Last Admin Dose Admin Acetaminophen (Tylenol) 650 mg Q6H PRN ORAL Mild Pain/Temp > 100.5 01/31/18 02:45 03/02/18 02:44 Acetaminophen/ Hydrocodone Bitart ([place] 5/325) 1 tab Q12H PRN ORAL Moderate Pain (Pain Scale 4-6) 01/31/18 02:45 02/07/18 02:44 02/04/18 01:27 Albuterol/ Ipratropium (Albuterol/ Ipratropium) 3 ml Q4H PRN HHN Shortness of Breath 01/31/18 16:45 02/05/18 16:44 01/31/18 16:54 Albuterol/ Ipratropium (Albuterol/ Ipratropium) 3 ml Q4HRT HHN 01/31/18 19:00 02/05/18 18:59 02/03/18 19:08 Azithromycin (Zithromax) 250 mg DAILY ORAL 02/02/18 09:00 02/09/18 08:59 02/04/18 08:38 Ceftriaxone Sodium 1 gm/ Dextrose 55 ml @ 110 mls/hr Q24H IVPB 02/02/18 09:00 02/09/18 08:59 02/03/18 09:01 Cyclobenzaprine HCl (Flexeril) 10 mg BID ORAL 01/31/18 09:00 03/02/18 08:59 02/04/18 08:38 Duloxetine HCl (Cymbalta) 60 mg BID ORAL 01/31/18 09:00 03/02/18 08:59 02/04/18 08:38 Famotidine (Pepcid) 20 mg DAILY ORAL 01/31/18 09:00 03/02/18 08:59 02/04/18 08:38 Fluticasone Propionate (Flonase) 1 spray DAILY NASAL 01/31/18 09:00 03/02/18 08:59 02/02/18 08:35 Guaifenesin (Robitussin) 100 mg Q6H PRN ORAL For Cough 01/31/18 02:45 03/02/18 02:44 02/04/18 05:55 Lamotrigine (LaMICtal) 100 mg BID ORAL 01/31/18 09:00 03/02/18 08:59 02/04/18 08:38 Levothyroxine Sodium (Synthroid) 125 mcg DAILY@0630 ORAL 01/31/18 06:30 03/02/18 06:29 02/04/18 05:54 Magnesium Hydroxide (Mom) 30 ml DAILY PRN ORAL Constipation 01/31/18 02:45 03/02/18 02:44 Methylprednisolone Sodium Succinate (Solu-MEDROL) 20 mg EVERY 12 HOURS IVP 02/02/18 21:00 03/02/18 08:59 02/03/18 20:20 Pregabalin (Lyrica) 75 mg THREE TIMES A DAY ORAL 02/01/18 13:00 03/03/18 12:59 02/04/18 08:37 Quetiapine Fumarate (SEROquel) 25 mg BID ORAL 01/31/18 09:00 03/02/18 08:59 02/04/18 08:38 Tramadol HCl (Ultram) 50 mg Q4H PRN ORAL Severe Pain (Pain Scale 7-10) 01/31/18 02:45 02/07/18 02:44 02/04/18 05:55 Trazodone HCl (Desyrel) 100 mg BEDTIME ORAL 01/31/18 21:00 03/02/18 20:59 02/03/18 20:21 Assessment/Plan Status: stable Assessment/Plan bipolar d/o anxiety d/o -trazodone -Seroquel -Ativan prn Jayro Whipple MD Feb 04, 2018 11:52
[2018-02-04 12:00] VITALS: BP 119/54
[2018-02-04] MEDS ORDERED: LORazepam 1mg tab ORAL PRN (12:00)
--- NOTE | 2018-02-04 12:54 | Infectious Diseases Prog Note ---
Assessment/Plan Assessment/Plan A 1. pneumonia 2. COPD exacerbation 3. hypertension 4. leucocytosis improving P: agree with discharge Subjective ROS Limited/Unobtainable: No Constitutional: Reports: no symptoms HEENT: Reports: other - nasal breathing Respiratory: Reports: dry cough Cardiovascular: Reports: no symptoms Gastrointestinal/Abdominal: Reports: no symptoms Genitourinary: Reports: no symptoms Allergies: Uncoded Allergies: lactose intolerant (Adverse Reaction, Intermediate, 01/31/18) Objective Vital Signs Last 24 Hour Vital Signs Date Time Temp Pulse Resp B/P (MAP) Pulse Ox O2 Delivery O2 Flow Rate FiO2 02/04/18 12:00 97.9 78 18 119/54 (75) 96 97.9 02/04/18 11:30 Room Air 21 02/04/18 11:30 Room Air 21 02/04/18 09:37 98.2 02/04/18 09:36 98.2 02/04/18 08:38 98.2 02/04/18 08:37 98.2 02/04/18 08:00 Room Air 02/04/18 08:00 97.7 76 18 121/49 (73) 95 97.7 02/04/18 06:54 98.2 02/04/18 06:35 Room Air 21 02/04/18 06:35 Room Air 21 02/04/18 05:55 98.2 02/04/18 04:09 98.2 78 16 116/68 (84) 95 98.2 02/04/18 02:55 75 18 97 Room Air 21 02/04/18 02:55 75 18 97 Room Air 02/04/18 02:26 97.7 02/04/18 01:27 97.7 02/03/18 23:31 Room Air 21 02/03/18 23:31 Room Air 21 02/03/18 21:00 Room Air 02/03/18 20:21 97.7 02/03/18 20:12 97.7 84 18 98/70 (79) 99 97.7 02/03/18 19:15 71 16 99 Room Air 21 02/03/18 19:09 73 16 Room Air 02/03/18 19:08 73 16 95 Room Air 02/03/18 17:37 98.6 02/03/18 17:37 98.6 02/03/18 16:35 79 18 98 Room Air 21 02/03/18 16:20 83 16 95 Room Air 02/03/18 16:00 98.6 72 20 121/56 (77) 95 98.6 02/03/18 15:24 97.9 Height (Feet): 5 Height (Inches): 7.00 Weight (Pounds): 176 General Appearance: no acute distress HEENT: mucous membranes moist Respiratory/Chest: decreased breath sounds Cardiovascular: normal rate Abdomen: soft, non tender Extremities: no edema Neurologic/Psychiatric: alert, oriented x 3, responsive Microbiology Date/Time Source Procedure Growth Status 02/03/18 14:30 Sputum Gram Stain Pending Resulted 02/03/18 14:30 Sputum Sputum Culture - Preliminary NO GROWTH Resulted Current Medications Medications (Trade) Dose Ordered Sig/Rohan Route PRN Reason Start Time Stop Time Status Last Admin Dose Admin Acetaminophen (Tylenol) 650 mg Q6H PRN ORAL Mild Pain/Temp > 100.5 01/31/18 02:45 03/02/18 02:44 Acetaminophen/ Hydrocodone Bitart ([place] 5/325) 1 tab Q12H PRN ORAL Moderate Pain (Pain Scale 4-6) 01/31/18 02:45 02/07/18 02:44 02/04/18 01:27 Albuterol/ Ipratropium (Albuterol/ Ipratropium) 3 ml Q4H PRN HHN Shortness of Breath 01/31/18 16:45 02/05/18 16:44 01/31/18 16:54 Albuterol/ Ipratropium (Albuterol/ Ipratropium) 3 ml Q4HRT HHN 01/31/18 19:00 02/05/18 18:59 02/03/18 19:08 Azithromycin (Zithromax) 250 mg DAILY ORAL 02/02/18 09:00 02/09/18 08:59 02/04/18 08:38 Ceftriaxone Sodium 1 gm/ Dextrose 55 ml @ 110 mls/hr Q24H IVPB 02/02/18 09:00 02/09/18 08:59 02/03/18 09:01 Cyclobenzaprine HCl (Flexeril) 10 mg BID ORAL 01/31/18 09:00 03/02/18 08:59 02/04/18 08:38 Duloxetine HCl (Cymbalta) 60 mg BID ORAL 01/31/18 09:00 03/02/18 08:59 02/04/18 08:38 Famotidine (Pepcid) 20 mg DAILY ORAL 01/31/18 09:00 03/02/18 08:59 02/04/18 08:38 Fluticasone Propionate (Flonase) 1 spray DAILY NASAL 01/31/18 09:00 03/02/18 08:59 02/02/18 08:35 Guaifenesin (Robitussin) 100 mg Q6H PRN ORAL For Cough 01/31/18 02:45 03/02/18 02:44 02/04/18 05:55 Lamotrigine (LaMICtal) 100 mg BID ORAL 01/31/18 09:00 03/02/18 08:59 02/04/18 08:38 Levothyroxine Sodium (Synthroid) 125 mcg DAILY@0630 ORAL 01/31/18 06:30 03/02/18 06:29 02/04/18 05:54 Lorazepam (Ativan) 1 mg BIDPRN PRN ORAL For Anxiety 02/04/18 12:00 02/11/18 11:59 Magnesium Hydroxide (Mom) 30 ml DAILY PRN ORAL Constipation 01/31/18 02:45 03/02/18 02:44 Methylprednisolone Sodium Succinate (Solu-MEDROL) 20 mg EVERY 12 HOURS IVP 02/02/18 21:00 03/02/18 08:59 02/03/18 20:20 Pregabalin (Lyrica) 75 mg THREE TIMES A DAY ORAL 02/01/18 13:00 03/03/18 12:59 02/04/18 08:37 Quetiapine Fumarate (SEROquel) 25 mg BID ORAL 01/31/18 09:00 03/02/18 08:59 02/04/18 08:38 Tramadol HCl (Ultram) 50 mg Q4H PRN ORAL Severe Pain (Pain Scale 7-10) 01/31/18 02:45 02/07/18 02:44 02/04/18 05:55 Trazodone HCl (Desyrel) 100 mg BEDTIME ORAL 01/31/18 21:00 03/02/18 20:59 02/03/18 20:21 Asim Baldwin MD Feb 04, 2018 12:54
--- NOTE | 2018-02-04 20:54 | Pulmonology Progress Note ---
Assessment/Plan Assessment/Plan Pneumonia (CXR clear now) COPD with exacerbation depression bipolar disorder gait dysfunction gastroesophageal reflux disease hypertension agree w dc plan PO steroids no smoking! Subjective Allergies: Uncoded Allergies: lactose intolerant (Adverse Reaction, Intermediate, 01/31/18) Subjective I am going home Objective Last 24 Hour Vital Signs Date Time Temp Pulse Resp B/P (MAP) Pulse Ox O2 Delivery O2 Flow Rate FiO2 02/04/18 12:00 97.9 78 18 119/54 (75) 96 97.9 02/04/18 11:30 Room Air 21 02/04/18 11:30 Room Air 21 02/04/18 09:37 98.2 02/04/18 09:36 98.2 02/04/18 08:38 98.2 02/04/18 08:37 98.2 02/04/18 08:00 Room Air 02/04/18 08:00 97.7 76 18 121/49 (73) 95 97.7 02/04/18 06:54 98.2 02/04/18 06:35 Room Air 21 02/04/18 06:35 Room Air 21 02/04/18 05:55 98.2 02/04/18 04:09 98.2 78 16 116/68 (84) 95 98.2 02/04/18 02:55 75 18 97 Room Air 21 02/04/18 02:55 75 18 97 Room Air 21 02/04/18 02:26 97.7 02/04/18 01:27 97.7 02/03/18 23:31 Room Air 21 02/03/18 23:31 Room Air 21 02/03/18 21:00 Room Air Intake and Output 02/03/18 02/04/18 19:00 07:00 Intake Total 775 ml 400 ml Balance 775 ml 400 ml Intake Oral 720 ml 400 ml IV Total 55 ml # Voids 4 3 Respiratory/Chest: lungs clear, decreased breath sounds Cardiovascular: normal rate Microbiology Date/Time Source Procedure Growth Status 02/03/18 14:30 Sputum Gram Stain - Final Resulted 02/03/18 14:30 Sputum Sputum Culture - Preliminary NO GROWTH Resulted Yahir Morton MD Feb 04, 2018 20:54
--- NOTE | 2018-02-05 12:06 | Discharge Summary ---
Discharge Summary Discharge Summary _ DATE OF ADMISSION: 01/31/2018 DATE OF DISCHARGE: 02/04/2018 CONSULTANTS: Dr. Yahir Lyon BRIEF HOSPITAL COURSE: Patient is a 67-year-old female, who presented to the emergency room complaining of shortness of breath with cough and sputum production for the past few days. She had fever of 101 in the morning and was complaining of generalized weakness and fatigue. She has medical history significant for COPD , CHF, hypertension, peripheral vascular disease and arthritis. She was a direct admit and was admitted to medical floor. Patient is DO NOT RESUSCITATE. She came in with leukocytosis, WBC was 16. She was started on ceftriaxone and IV steroids were initiated. She was given nebulizer treatments with DuoNeb. Chest x-ray showed low lung volumes and an elevated right hemidiaphragm and right lower lobe infiltrate. Zithromax was added to her regimen. She complained of neck pain and upper back pain. Neurontin provided minimal relief. Cervical spine MRI showed spinal stenosis, worse on C5-C6. Neurontin was discontinued and was given Lyrica. She was given [place] and tramadol when necessary for pain. She currently smokes half pack of cigarettes per day. She was counseled on smoking cessation. Patient was anxious and was diagnosed with bipolar and anxiety disorder. She was given trazodone 100 mg nightly and Seroquel 25 mg twice a day. Sputum culture with normal upper respiratory danae. Repeat chest x-ray showed no acute findings. She was saturating well on room air. She was discharged home to continue po antibiotic and steroids and steroids at home. FINAL DIAGNOSES: Pneumonia COPD with exacerbation Depression Bipolar disorder Gastroesophageal reflux disease Hypertension CHF DISPOSITION: Patient was discharged home. DISCHARGE MEDICATIONS: Refer to Discharge Medication List. DISCHARGE INSTRUCTIONS: Follow up within a week. I have been assigned to dictate discharge summary on this account, and I was not involved in the patient's management. Bettye Richey NP Feb 05, 2018 12:06
== END 2018-02-04 13:00 | DRG 190 ==
LOC: 4W 01-31 00:11
DX: J44.1 Chronic obstructive pulmonary disease with (acute) exacerbation (principal); J18.9 Pneumonia, unspecified organism; B02.29 Other postherpetic nervous system involvement; F31.9 Bipolar disorder, unspecified; K21.9 Gastro-esophageal reflux disease without esophagitis; E03.9 Hypothyroidism, unspecified; R26.9 Unspecified abnormalities of gait and mobility; Z66 Do not resuscitate; M47.9 Spondylosis, unspecified; G89.29 Other chronic pain; F41.9 Anxiety disorder, unspecified; M19.90 Unspecified osteoarthritis, unspecified site; I73.9 Peripheral vascular disease, unspecified; F17.210 Nicotine dependence, cigarettes, uncomplicated; I11.0 Hypertensive heart disease with heart failure; I50.9 Heart failure, unspecified
CPT/HCPCS: 36415; 36600; 71045; 72141; 80053; 82803; 84443; 85007; 85025; 87070; 87081; 87205; 94640; 94664; J7620